=== PATIENT | male | born 1960 | race Hispanic/Latino ===

== ENCOUNTER 2016-07-07 04:35 | Inpatient (IN) | payer MEDICAID ==
--- NOTE | 2016-07-07 04:58 | ED PDOC ---
Arrival/HPI - General Chief Complaint: Altered Mental Status Time Seen by Provider: 07/07/16 04:36 Historian: Family, EMS - History of Present Illness Narrative History of Present Illness (Text): 07/07/16 04:56 Isael Haney is a 56 year old male, whose past medical history includes hernias, gout, kidney stones, and CAD stents, presents to the emergency department via ambulance for unresponsiveness. Patient was found unresponsive on the couch earlier today morning by daughter, who called the ambulance. He was last seen normal at 6 pm yesterday. Patient's daughter informs that he had been sick for past few days, but was unwilling to get evaluated. ROS limited due to patient's condition. Symptom Onset: Sudden Symptom Course: Unchanged Severity Level: Severe Activities at Onset: Light Context: Home Past Medical History - Provider Review Nursing Documentation Reviewed: Yes - Infectious Disease Hx of Infectious Diseases: None - Cardiac Hx Cardiac Disorders: No - Pulmonary Hx Respiratory Disorders: No - Neurological Hx Neurological Disorder: No - HEENT Hx HEENT Disorder: No - Renal Hx Kidney Stones: Yes - Endocrine/Metabolic Hx Endocrine Disorders: No - Hematological/Oncological Hx Blood Disorders: No - Integumentary Hx Dermatological Disorder: No - Musculoskeletal/Rheumatological Hx Falls: No Hx Gout: Yes - Gastrointestinal Hx Gastrointestinal Disorders: No - Genitourinary/Gynecological Hx Genitourinary Disorders: No - Psychiatric Hx Psychophysiologic Disorder: No Hx Substance Use: No - Surgical History Other/Comment: Renal stents - removed over a year ago - Suicidal Assessment Feels Threatened In Home Enviroment: No Family/Social History - Physician Review Nursing Documentation Reviewed: Yes Family/Social History: No Known Family HX Smoking Status: Unknown If Ever Smoked Hx Alcohol Use: No Hx Substance Use: No Allergies/Home Meds Allergies/Adverse Reactions: Allergies No Known Allergies Allergy (Verified 07/29/15 10:15) Home Medications: Home Meds Medication Instructions Recorded Confirmed Allopurinol [Zyloprim] 300 mg PO BID 07/07/16 07/07/16 Cetirizine HCl [Zyrtec Allergy] 10 mg PO DAILY 07/07/16 07/07/16 Cholecalciferol (Vitamin D3) 2,000 unit PO DAILY 07/07/16 07/07/16 [Vitamin D3] Dexamethasone/Tobramycin [Tobradex 1 drop OP QID 07/07/16 07/07/16 0.1%-0.3% 2.5 Ml] Indomethacin [Indocin] 50 mg PO BID 07/07/16 07/07/16 Ketotifen Fumarate [Zaditor 5 ml] 1 drop LEFTEYE BID 07/07/16 07/07/16 Tamsulosin [Flomax] 0.4 mg PO DAILY 07/07/16 07/07/16 Review of Systems - Review of Systems Systems not reviewed;Unavailable: Intubated Physical Exam Vital Signs Temp Pulse Resp BP Pulse Ox 07/07/16 09:00 155 H 18 91/52 L 100 07/07/16 08:00 155 H 16 100/65 100 07/07/16 07:30 147 H 40 H 119/72 100 07/07/16 06:19 150 H 15 144/63 100 07/07/16 05:40 149 H 15 114/67 100 07/07/16 05:00 104.4 F H 07/07/16 04:50 104.4 F H 140 H 15 120/79 100 Temperature: Febrile Blood Pressure: Normal Pulse: Tachycardic Respiratory Rate: Mechanically Ventilated Appearance: Positive for: Non-Toxic Mental Status: Positive for: other (Unresponsive ) - Systems Exam Head: Present: Atraumatic, Normocephalic Pupils: Present: PERRL Conjunctiva: Present: Normal Cardiovascular: Present: Normal S1, S2, Tachycardic. No: Murmurs Abdomen: Present: Normal Bowel Sounds. No: Tenderness, Distention, Peritoneal Signs Upper Extremity: Present: Normal Inspection. No: Cyanosis, Edema Lower Extremity: Present: Normal Inspection. No: Edema Skin: Present: Warm, Dry, Normal Color. No: Rashes Psychiatric: Present: Other (unresponsive ) Medical Decision Making ED Course and Treatment: 07/07/16 04:58 Impression: A 56 year old male who was brought to emergency department for unresponsiveness. Plan: -- CT Head -- EKG -- Labs, cardiac enzymes -- Drug screen -- Chest X-ray -- Blood culture -- Urine culture -- Urinalysis -- Reassess and disposition Progress Notes: 07/07/16 05:00 Patient was intubated in the field with a 7 gauge ET tube with 23 cm lip line. EKG reviewed by me: Sinus Tachycardia @ [address]/T wave changes. - Lab Interpretations Microbiology Results: Microbiology Results 07/07/16 08:00 Urine,Clean Catch Urine Culture - Final Escherichia Coli Methicillin Resistant S Aureus 07/07/16 05:00 Urine,Ewing Urine Culture - Final Escherichia Coli Methicillin Resistant S Aureus 07/07/16 05:40 Blood-Venous Blood Culture - Final Methicillin Resistant S Aureus 07/07/16 05:40 Blood-Venous Gram Stain - Final 07/07/16 04:45 Blood-Venous S.aureus & Coag-Neg Staph PNA FISH - Final 07/07/16 04:45 Blood-Venous Blood Culture - Final Methicillin Resistant S Aureus 07/07/16 04:45 Blood-Venous Gram Stain - Final Lab Results: 07/07/16 04:45 07/07/16 04:45 Lab Results 07/07/16 09:10: pO2 61 H, VBG pH 7.10 L*, VBG pCO2 34.0 L, VBG HCO3 10.6 L, VBG Total CO2 11.6 L, VBG O2 Sat (Calc) 88.6 H, VBG Base Excess -18.1 L, VBG Potassium 3.2 L, Sodium 132.0, Chloride 106.0, Glucose 103, Lactate 4.6 H*, FiO2 21.0, Venous Blood Potassium 3.2 L 07/07/16 09:00: Hepatitis A IgM Ab Negative, Hep Bs Antigen Negative, Hep B Core IgM Ab Negative, Hepatitis C Antibody Negative 07/07/16 09:00: TSH 3rd Generation 1.49 07/07/16 09:00: Hemoglobin A1c 6.1 07/07/16 09:00: HIV 1&2 Ag/Ab, 4th Gen Nonreactive 07/07/16 09:00: Procalcitonin 175.65 H 07/07/16 06:00: pCO2 19 L*, pO2 135.0 H, HCO3 6.8 L*, ABG pH 7.16 L*, ABG Total CO2 7.4 L, ABG O2 Saturation 96.7, ABG Base Excess -19.8 L, ABG Potassium 2.9 L , Sodium 134.0, Chloride 111.0 H, Glucose 132 H, Lactate 3.1 H, FiO2 50.0, Arterial Blood Potassium 2.9 L 07/07/16 05:00: Urine Opiates Screen Negative, Urine Methadone Screen Negative, Ur Barbiturates Screen Negative, Ur Phencyclidine Scrn Negative, Ur Amphetamines Screen Negative, U Benzodiazepines Scrn Negative, U Oth Cocaine Metabols Negative, U Cannabinoids Screen Negative 07/07/16 05:00: Urine Color Yellow, Urine Appearance Cloudy, Urine pH 6.0, Ur Specific Lynn 1.015, Urine Protein 100 H, Urine Glucose (UA) Negative, Urine Ketones Negative, Urine Blood Large H, Urine Nitrate Negative, Urine Bilirubin Small H, Urine Urobilinogen 1.0 H, Ur Leukocyte Esterase Moderate H, Urine RBC 2 - 5, Urine WBC Tntc, Ur Epithelial Cells 0 - 2, Urine Bacteria Many 07/07/16 04:45: pO2 33, VBG pH 6.92 L*, VBG pCO2 53.0, VBG HCO3 10.9 L, VBG Total CO2 12.5 L, VBG O2 Sat (Calc) 52.2, VBG Base Excess -22.0 L, VBG Potassium 3.9, Sodium 128.0 L, Chloride 98.0, Glucose 166 H, Lactate 5.5 H*, FiO2 21.0, Venous Blood Potassium 3.9 07/07/16 04:45: Ammonia 20 07/07/16 04:45: Salicylates < 1 L, Acetaminophen < 10.0 L 07/07/16 04:45: Alcohol, Quantitative < 10 07/07/16 04:45: Sodium 131 L, Chloride 98, Potassium 3.5 L, Carbon Dioxide 10 L , Anion Gap 27 H, BUN 103 H, Creatinine 9.8 H*, Est GFR ( Amer) 7, Est GFR (Non-Af Amer) 6, Random Glucose 156 H, Calcium 8.3 L, Phosphorus 6.9 H, Magnesium 1.6 L, Total Bilirubin 2.7 H, AST 64 H, ALT 46, Alkaline Phosphatase 169 H, Lactate Dehydrogenase 836 H, Total Creatine Kinase 651 H, CK-MB (CK-2) 10.4 H, CK-MB (CK-2) % 1.6 L, Troponin I 1.87 H*, Total Protein 6.2, Albumin 3.3 , Globulin 2.9, Albumin/Globulin Ratio 1.1 07/07/16 04:45: PT 13.4 H, INR 1.24 H, APTT 35.9 H 07/07/16 04:45: WBC 29.5 H* D, RBC 4.96, Hgb 14.7, Hct 41.5 L, MCV 83.7, MCH 29.6, MCHC 35.4, RDW 15.6 H, Plt Count 146, Neutrophils % (Manual) 79 H, Band Neutrophils % 13 H*, Lymphocytes % (Manual) 4 L, Monocytes % (Manual) 4, Platelet Evaluation Normal, Poikilocytosis (manual Slight, Anisocytosis (manual ) 1+ - RAD Interpretation Radiology Orders: 07/07/16 04:43 HEAD W/O CONTRAST [CT] Stat 07/07/16 04:44 CHEST PORTABLE [RAD] Stat 07/07/16 05:52 ABD & PELVIS W/O PO OR IV CONT [CT] Stat - Medication Orders Current Medication Orders: Discontinued Medications Acetaminophen (Tylenol 650 Mg Supp) Confirm Administered Dose 650 mg .ROUTE .STK -MED ONE Stop: 07/07/16 05:14 Last Admin: 07/07/16 05:00 Dose: 650 mg Re-Assess: MAR Pain/Vitals Document 07/07/16 06:00 RD (Rec: 07/07/16 06:04 RD [id number]) Pain Reassessment Is This A Pain ReAssessment? No Presence of Pain Presence of Pain Yes Acetaminophen (Tylenol 650 Mg Supp) 650 mg RC STAT STA Stop: 07/07/16 05:19 Last Admin: 07/07/16 05:29 Dose: Artificial Tears (Puralube Opht Oint) 2 appl OU Q2H COUNT INCLUDES THE [facility] Last Admin: 07/09/16 05:44 Dose: 1 applic Heparin Sodium (Porcine) (Heparin) 5,000 units SC Q8H NICO PRN Reason: Protocol Last Admin: 07/07/16 09:55 Dose: Hydrocortisone Sodium Succinate (Solu-Cortef) 50 mg IV Q6 NICO Hydrocortisone Sodium Succinate (Solu-Cortef) 50 mg IVP Q6H COUNT INCLUDES THE [facility] Last Admin: 07/09/16 04:54 Dose: 50 mg Aztreonam (Azactam 2 Gm) 100 mls @ 100 mls/hr IVPB STAT STA PRN Reason: Protocol Stop: 07/07/16 06:13 Last Admin: 07/07/16 05:29 Dose: 100 mls/hr Sodium Chloride 2,100 ml/ IV (SUPPLIES) 2,100 mls @ 4,200 mls/hr IV ONCE ONE PRN Reason: 60 ML/KG/HR Stop: 07/07/16 05:15 Last Admin: 07/07/16 05:00 Dose: 4,200 mls/hr Vancomycin HCl (Vancomycin 1gm) 1 gm in 250 mls @ 167 mls/hr IVPB STAT STA PRN Reason: Protocol Stop: 07/07/16 06:43 Last Admin: 07/07/16 06:46 Dose: 167 mls/hr Midazolam 100 mg/100ml in NS (Midazolam 100 Mg/100ml In Ns) 100 mg in 100 mls @ 3 mls/hr IV .Q24H PRN; Protocol; 3 MG/HR PRN Reason: Agitation Last Admin: 07/07/16 10:28 Dose: 7 mg/hr, 7 mls/hr Metronidazole (Flagyl) 500 mg in 100 mls @ 100 mls/hr IVPB Q8 NICO PRN Reason: Protocol Last Admin: 07/09/16 05:07 Dose: 100 mls/hr Piperacillin Sod/Tazobactam Sod (Zosyn 3.375 In Ns 100ml) 100 mls @ 200 mls/hr IVPB STAT STA PRN Reason: Protocol Stop: 07/07/16 09:16 Last Admin: 07/07/16 14:44 Dose: 200 mls/hr Sodium Bicarbonate 150 meq/ (Dextrose) 1,150 mls @ 200 mls/hr IV .Q5H45M NICO Last Admin: 07/09/16 01:30 Dose: 200 mls/hr Meropenem 1g/NS 100mL IVPB (Meropenem 1g/Ns 100ml Ivpb) 1 gm in 100 mls @ 100 mls/hr IVPB Q8 NICO PRN Reason: Protocol Stop: 07/14/16 10:01 Last Admin: 07/07/16 14:11 Dose: Daptomycin 420 mg/ Sodium (Chloride) 100 mls @ 200 mls/hr IV ONCE ONE Stop: 07/07/16 10:44 Last Admin: 07/07/16 13:36 Dose: 200 mls/hr Gentamicin Sulfate 350 mg/ (Sodium Chloride) 108.75 mls @ 108.75 mls/hr IVPB ONCE ONE Stop: 07/07/16 11:14 Last Admin: 07/07/16 14:03 Dose: 108.75 mls/hr Amiodarone HCl/Dextrose (Nexterone 150 Mg In Dextrose 100 Ml (Premix)) Confirm Administered Dose 150 mg in 100 mls @ ud .ROUTE .STK-MED ONE Stop: 07/07/16 11:10 Last Admin: 07/07/16 14:45 Dose: NOREPINEPHRINE BIT/0.9 % NACL (Levophed 4 Mg/ 250 Ml Ns Premixed) Confirm Administered Dose 4 mg in 250 mls @ ud IV .STK-MED ONE Stop: 07/07/16 11:13 Last Admin: 07/07/16 14:11 Dose: Amiodarone HCl/Dextrose (Nexterone 360 Mg In D5w 200 Ml (Premix)) 360 mg in 200 mls @ 33.333 mls/hr IV .Q6H NICO; 1 MG/MIN PRN Reason: Protocol Last Admin: 07/07/16 11:43 Dose: 33.333 mls/hr Phenylephrine HCl 40 mg/ (Sodium Chloride) 254 mls @ 38.1 mls/hr IV .Q6H40M PRN ; Protocol; 100 MCG/MIN PRN Reason: TITRATE PER MD ORDER Last Admin: 07/08/16 16:06 Dose: 200 mcg/min, 76.2 mls/hr Sodium Chloride (Sodium Chloride 0.9%) 500 mls @ 999 mls/hr IV .Q31M STA Stop: 07/07/16 12:59 Sodium Chloride (Sodium Chloride 0.9%) 500 mls @ 999 mls/hr IV .Q31M STA Stop: 07/07/16 13:00 Amiodarone HCl/Dextrose (Nexterone 150 Mg In Dextrose 100 Ml (Premix)) 150 mg in 100 mls @ 600 mls/hr IVPB ONCE ONE PRN Reason: Protocol Stop: 07/07/16 12:39 Last Admin: 07/07/16 11:30 Dose: 600 mls/hr Sodium Chloride (Sodium Chloride 0.9%) 1,000 mls @ 999 mls/hr IV .Q1H1M STA Stop: 07/07/16 13:29 Last Admin: 07/07/16 13:47 Dose: 999 mls/hr Sodium Chloride (Sodium Chloride 0.9%) 1,000 mls @ 999 mls/hr IV .Q1H1M STA Stop: 07/07/16 13:30 Last Admin: 07/07/16 13:47 Dose: 999 mls/hr Vasopressin 20 units/ Sodium (Chloride) 101 mls @ 9.09 mls/hr IV .Q11H7M NICO; 0.03 U/MIN PRN Reason: Protocol Last Admin: 07/08/16 13:10 Dose: 9.09 mls/hr NOREPINEPHRINE BIT/0.9 % NACL (Levophed 4 Mg/ 250 Ml Ns Premixed) 4 mg in 250 mls @ 15 mls/hr IV .[id number] PRN; Protocol; 4 MCG/MIN PRN Reason: TITRATE PER MD ORDER NOREPINEPHRINE BIT/0.9 % NACL (Levophed 4 Mg/ 250 Ml Ns Premixed) 4 mg in 250 mls @ 18.75 mls/hr IV .[id number] PRN; Protocol; 5 MCG/MIN PRN Reason: TITRATE PER MD ORDER Stop: 07/08/16 22:13 Last Admin: 07/08/16 18:53 Dose: 20 mcg/min, 75 mls/hr Sodium Chloride (Sodium Chloride 0.9%) 1,000 mls @ 999 mls/hr IV .Q1H1M STA Stop: 07/07/16 15:16 Last Admin: 07/07/16 14:21 Dose: 999 mls/hr Midazolam 100 mg/100ml in NS (Midazolam 100 Mg/100ml In Ns) 100 mg in 100 mls @ 1 mls/hr IV .Q24H PRN; Protocol; 1 MG/HR PRN Reason: Sedation Last Admin: 07/08/16 08:40 Dose: 0.5 mg/hr, 0.5 mls/hr Acetaminophen (Ofirmev) 1,000 mg in 100 mls @ 400 mls/hr IVPB ONCE ONE Stop: 07/07/16 15:17 Last Admin: 07/07/16 15:13 Dose: 400 mls/hr Re-Assess: [facility] Pain Assessment Document 07/07/16 16:13 [id number] (Rec: 07/07/16 17:16 [id number] [email or web address]-[id number] ) Pain Reassessment Is this a pain reassessment? No Presence of Pain Presence of Pain No Magnesium Sulfate 2 gm/ Sodium (Chloride) 104 mls @ 102 mls/hr IVPB ONCE ONE Stop: 07/07/16 16:13 Last Admin: 07/07/16 15:41 Dose: 102 mls/hr Potassium Chloride (Potassium Chloride 20 Meq/100 Ml) 20 meq in 100 mls @ 50 mls/hr IVPB Q2H COUNT INCLUDES THE [facility] Stop: 07/07/16 19:14 Last Admin: 07/07/16 17:10 Dose: 50 mls/hr Sodium Chloride (Sodium Chloride 0.9%) 1,000 mls @ 999 mls/hr IV .Q1H1M STA Stop: 07/07/16 16:56 Last Admin: 07/07/16 16:00 Dose: 999 mls/hr Meropenem 1g/NS 100mL IVPB (Meropenem 1g/Ns 100ml Ivpb) 1 gm in 100 mls @ 100 mls/hr IVPB Q12 NICO PRN Reason: Protocol Stop: 07/14/16 22:01 Last Admin: 07/08/16 21:43 Dose: 100 mls/hr Daptomycin 450 mg/ Sodium (Chloride) 100 mls @ 200 mls/hr IV QOTHERDAY COUNT INCLUDES THE [facility] Stop: 07/22/16 10:01 Sodium Chloride (Sodium Chloride 0.9%) 1,000 mls @ 999 mls/hr IV .Q1H1M STA Stop: 07/08/16 10:20 Last Admin: 07/08/16 09:39 Dose: 999 mls/hr Daptomycin 450 mg/ Sodium (Chloride) 100 mls @ 200 mls/hr IV QOTHERDAY COUNT INCLUDES THE [facility] Stop: 07/14/16 10:01 Daptomycin 450 mg/ Sodium (Chloride) 100 mls @ 200 mls/hr IV QOTHERDAY COUNT INCLUDES THE [facility] Stop: 07/13/16 10:16 Last Admin: 07/08/16 11:30 Dose: 200 mls/hr Norepinephrine Bitartrate 8 mg (/ Sodium Chloride) 258 mls @ 9.67 mls/hr IV .Q24H PRN; 5 MCG/MIN PRN Reason: PER MDS ORDER Norepinephrine Bitartrate 8 mg (/ Sodium Chloride) 258 mls @ 9.67 mls/hr IV .Q24H PRN; Protocol; 5 MCG/MIN PRN Reason: PER MDS ORDER Last Titration: 07/09/16 01:05 Dose: 0 mcg/min, 0 mls/hr Phenylephrine HCl 80 mg/ (Sodium Chloride) 258 mls @ 19.35 mls/hr IV .[id number] PRN; Protocol; 100 MCG/MIN PRN Reason: TITRATE PER MD ORDER Last Titration: 07/09/16 01:05 Dose: 0 mcg/min, 0 mls/hr Morphine Sulfate 100 mg/ (Sodium Chloride) 100 mls @ 4 mls/hr IV .Q24H COUNT INCLUDES THE [facility] Last Admin: 07/09/16 01:50 Dose: 4 mls/hr Re-Assess: [facility] Pain Assessment Document 07/09/16 02:50 [facility] (Rec: 07/09/16 04:46 [id number] Pain Reassessment Is this a pain reassessment? Yes Sleep Is patient sleeping during reassessment? Yes Metoprolol Tartrate (Lopressor) 2.5 mg IVP ONCE ONE Stop: 07/07/16 15:51 Last Admin: 07/07/16 15:58 Dose: Not Given Non-Admin Reason: BP Parameters Not Met Midazolam HCl (Versed Inj) 4 mg IVP STAT STA Stop: 07/07/16 07:58 Last Admin: 07/07/16 08:19 Dose: 4 mg Morphine Sulfate (Morphine) 6 mg IVP STAT STA Stop: 07/09/16 00:41 Last Admin: 07/09/16 01:05 Dose: 6 mg Re-Assess: [facility] Pain Assessment Document 07/09/16 02:05 [facility] (Rec: 07/09/16 04:46 A [id number]) Pain Reassessment Is this a pain reassessment? Yes Sleep Is patient sleeping during reassessment? Yes Morphine Sulfate (Morphine) 6 mg IVP STAT STA Stop: 07/09/16 00:54 Last Admin: 07/09/16 01:22 Dose: Pantoprazole Sodium (Protonix Inj) 40 mg IVP DAILY COUNT INCLUDES THE [facility] Last Admin: 07/08/16 09:37 Dose: 40 mg Phenylephrine HCl (Phenylephrine Inj) Confirm Administered Dose 40 mg .ROUTE .STK-MED ONE Stop: 07/07/16 11:35 Last Admin: 07/07/16 14:13 Dose: Pneumococcal Polyvalent Vaccine (Pneumovax 23 Vaccine) 0.5 ml IM .ONCE ONE Stop: 07/07/16 13:22 Potassium Chloride (Potassium Chloride Oral Soln) 40 meq PO ONCE ONE Stop: 07/07/16 15:00 Last Admin: 07/07/16 15:33 Dose: 40 meq Sodium Bicarbonate (Sodium Bicarbonate (8.4%) 50 Meq Syringe) 50 meq IVP ONCE ONE Stop: 07/07/16 05:58 Last Admin: 07/07/16 06:19 Dose: 50 meq Vancomycin HCl (Vancocin 25 Mg/Ml (Oral Use)) 500 mg PO Q6H NICO PRN Reason: Protocol Last Admin: 07/09/16 04:59 Dose: 500 mg - Transfer of Care Patient signed out to Dr:: beata viveros reval and dispo Disposition/Present on Arrival - Present on Arrival Any Indicators Present on Arrival: No History of DVT/PE: No History of Uncontrolled Diabetes: No Urinary Catheter: No History Surgical Site Infection Following: None - Disposition Have Diagnosis and Disposition been Completed?: Yes Diagnosis: Septic shock, Respiratory failure, Acute renal failure (ARF) Disposition: HOSPITALIZED Disposition Time: 07:00 Condition: CRITICAL
[2016-07-07] MEDS ORDERED: Vancomycin 1gm in NS 250ml 1 GM/250 ML BAG IVPB STA (05:14)
[2016-07-07] MEDS ORDERED: Aztreonam 2 Gm in NS 100mL 100 ML IVPB STA (05:14)
[2016-07-07 05:17] LABS: INR 1.24 (0.93-1.08); PARTIAL THROMBOPLASTIN TIME 35.9 Seconds (23.7-30.8)
[2016-07-07 05:23] LABS: URINE BILIRUBIN SMALL (NEGATIVE); URINE BLOOD LARGE (NEGATIVE); URINE GLUCOSE (UA) NEGATIVE (NEGATIVE); URINE KETONE NEGATIVE (NEGATIVE); URINE LEUKOCYTE ESTERASE MODERATE Leu/uL (NEGATIVE); URINE PROTEIN 100 mg/dL (<30 mg/dL)
[2016-07-07 05:24] LABS: URINE APPEARANCE CLOUDY (CLEAR); URINE COLOR YELLOW (YELLOW)
[2016-07-07 05:29] LABS: HEMATOCRIT 41.5 % (42.0-52.0); MEAN CELL VOLUME 83.7 fL (80.0-105.0); MEAN CORPUSCULAR HEMOGLOBIN 29.6 pg (25.0-35.0); MEAN CORPUSCULAR HGB CONC 35.4 g/dl (31.0-37.0); PLATELET COUNT 146 10^3/uL (120.0-450.0); RED CELL DISTRIBUTION WIDTH 15.6 % (11.5-14.5)
[2016-07-07 05:39] LABS: ADD MANUAL DIFF? YES; WHITE BLOOD COUNT 29.5 10^3/ul (4.5-11.0)
[2016-07-07 05:42] LABS: ALB/GLOB RATIO 1.1 (1.1-1.8); BILIRUBIN,TOTAL 2.7 mg/dL (0.2-1.3); CALCIUM 8.3 mg/dL (8.4-10.5); MAGNESIUM 1.6 mg/dL (1.7-2.2); PHOSPHOROUS 6.9 mg/dL (2.5-4.5); POTASSIUM 3.5 mmol/L (3.6-5.0); TOTAL PROTEIN 6.2 g/dL (5.8-8.3)
[2016-07-07 05:54] LABS: VENOUS BLOOD PH 6.92 (7.32-7.43)
[2016-07-07 05:56] LABS: URINE BACTERIA MANY (NEG); URINE EPITHELIAL CELLS 0 - 2 /hpf (0-5); URINE WBC TNTC /hpf (0-6)
[2016-07-07 05:56] LABS: TROPONIN I 1.87 ng/mL
[2016-07-07] MEDS ORDERED: Sodium Bicarbonate (8.4%) 50 Meq Syringe IVP ONE (05:57)
[2016-07-07 06:21] LABS: ARTERIAL BLOOD GAS HCO3 6.8 mmol/L (21-28); ARTERIAL BLOOD GAS PH 7.16 (7.35-7.45)
[2016-07-07 06:36] LABS: NEUTROPHIL 79 % (50.0-70.0)
[2016-07-07 06:37] LABS: BAND 13 % (0-2); PLATELET ESTIMATE NORMAL (NORMAL)
[2016-07-07 06:38] LABS: ANISOCYTOSIS 1+; POIKILOCYTOSIS SLIGHT
--- NOTE | 2016-07-07 07:43 | RAD ---
HISTORY: intubation COMPARISON: Chest x-ray performed 07/07/16 TECHNIQUE: Chest, one view. FINDINGS: Endotracheal tube terminates approximately 2.7 cm above the musa. Patient's necklace obscures evaluation of the underlying parenchyma, upper lobes. LUNGS: No focal consolidation. Please note that chest x-ray has limited sensitivity for the detection of pulmonary masses. PLEURA: No significant pleural effusion identified. No definite pneumothorax . CARDIOVASCULAR: Heart size appears within limits. OSSEOUS STRUCTURES: Mild degenerative changes. VISUALIZED UPPER ABDOMEN: Partially imaged bilateral nephrostomy tubes. OTHER FINDINGS: None. IMPRESSION: Endotracheal tube. Partially imaged bilateral nephrostomy tubes. Mild bibasilar atelectasis.
[2016-07-07] MEDS ORDERED: Midazolam 2 MG/2 ML VIAL IVP STA (07:57)
--- NOTE | 2016-07-07 08:12 | CT ---
PROCEDURE: CT HEAD WITHOUT CONTRAST. HISTORY: ams COMPARISON: None available. TECHNIQUE: Axial computed tomography images were obtained through the head/brain without intravenous contrast. Radiation dose: Total exam DLP = 745.44 mGy-cm. This CT exam was performed using one or more of the following dose reduction techniques: Automated exposure control, adjustment of the mA and/or kV according to patient size, and/or use of iterative reconstruction technique. FINDINGS: BRAIN: No mass effect, midline shift, or edema. Thin hyperdensity, right greater than left parietal sulci consistent with small subarachnoid hemorrhage. Please note that MRI with diffusion imaging is more sensitive in the detection of acute ischemic event. VENTRICLES: No hydrocephalus. CALVARIUM: Unremarkable. PARANASAL SINUSES: Unremarkable as visualized. No significant inflammatory changes. MASTOID AIR CELLS: Unremarkable as visualized. No inflammatory changes. OTHER FINDINGS: Small soft tissue hematoma, left posterior scalp. IMPRESSION: Findings consistent with bilateral small subarachnoid hemorrhage as above. Recommend close interval follow-up to assess for stability or resolution. Small soft tissue hematoma, left posterior scalp. Emergent findings discussed with Dr. Johnson on 07/07/16 at 7:33 a.m.
--- NOTE | 2016-07-07 08:18 | ED PDOC ---
Physical Exam Vital Signs Temp Pulse Resp BP Pulse Ox 07/07/16 06:19 150 H 15 144/63 100 07/07/16 05:40 149 H 15 114/67 100 07/07/16 05:00 104.4 F H 07/07/16 04:50 104.4 F H 140 H 15 120/79 100 Medical Decision Making ED Course and Treatment: 07/07/16 07:00 Patient signed out to me by Dr. Nicholas pending CT's, reevaluation, disposition. PROCEDURE: CT HEAD WITHOUT CONTRAST Financial Planning Analyst : Polly Loving MD Report Date : 07/07/2016 07:39:31 IMPRESSION: Findings consistent with bilateral small subarachnoid hemorrhage as above. Recommend close interval follow-up to assess for stability or resolution. Small soft tissue hematoma, left posterior scalp. Emergent findings discussed with Dr. Johnson on 07/07/16 at 7:33 a.m. PROCEDURE: CT Abdomen and Pelvis without Oral or IV contrast Financial Planning Analyst : Polly Loving MD Report Date : 07/07/2016 08:17:37 IMPRESSION: Zfld-[id number]-vftj-right bibasilar atelectasis or infiltrates. Left colon through to the rectosigmoid colon with associated inflammatory changes compatible with colitis (i.e. infectious, inflammatory, ischemic). Large amount of retained colonic fecal material within the right and proximal transverse colon. Hepatic steatosis. Pancreatic atrophy. Bilateral nephrostomy tubes. Fullness of bilateral renal collecting system. 2.1 cm right renal exophytic lesion measures higher HU than expected for simple cyst, further evaluation with ultrasound may be considered. Bilateral adrenal gland hypertrophy. Bilateral fat containing inguinal hernias. Additional findings as above. Chest X-ray Dictator : Polly Loving MD Report Date : 07/07/2016 07:40:47 IMPRESSION: Endotracheal tube. Partially imaged bilateral nephrostomy tubes. Mild bibasilar atelectasis. 07/07/16 07:35 As per radiologist, preliminary read shows possible bilateral subarachnoid hemorrhage 07/07/16 08:[address] Mares, neurosurgery, who states he reviewed the case and there is nothing to do, suggests observation. 07/07/16 08:[address] Randolph - Lab Interpretations Lab Results: 07/07/16 04:45 07/07/16 04:45 Lab Results 07/07/16 06:00: pCO2 19 L*, pO2 135.0 H, HCO3 6.8 L*, ABG pH 7.16 L*, ABG Total CO2 7.4 L, ABG O2 Saturation 96.7, ABG Base Excess -19.8 L, ABG Potassium 2.9 L , Sodium 134.0, Chloride 111.0 H, Glucose 132 H, Lactate 3.1 H, FiO2 50.0, Arterial Blood Potassium 2.9 L 07/07/16 05:00: Urine Opiates Screen Negative, Urine Methadone Screen Negative, Ur Barbiturates Screen Negative, Ur Phencyclidine Scrn Negative, Ur Amphetamines Screen Negative, U Benzodiazepines Scrn Negative, U Oth Cocaine Metabols Negative, U Cannabinoids Screen Negative 07/07/16 05:00: Urine Color Yellow, Urine Appearance Cloudy, Urine pH 6.0, Ur Specific [place] 1.015, Urine Protein 100 H, Urine Glucose (UA) Negative, Urine Ketones Negative, Urine Blood Large H, Urine Nitrate Negative, Urine Bilirubin Small H, Urine Urobilinogen 1.0 H, Ur Leukocyte Esterase Moderate H, Urine RBC 2 - 5, Urine WBC Tntc, Ur Epithelial Cells 0 - 2, Urine Bacteria Many 07/07/16 04:45: pO2 33, VBG pH 6.92 L*, VBG pCO2 53.0, VBG HCO3 10.9 L, VBG Total CO2 12.5 L, VBG O2 Sat (Calc) 52.2, VBG Base Excess -22.0 L, VBG Potassium 3.9, Sodium 128.0 L, Chloride 98.0, Glucose 166 H, Lactate 5.5 H*, FiO2 21.0, Venous Blood Potassium 3.9 07/07/16 04:45: Ammonia 20 07/07/16 04:45: Salicylates < 1 L, Acetaminophen < 10.0 L 07/07/16 04:45: Alcohol, Quantitative < 10 07/07/16 04:45: Sodium 131 L, Chloride 98, Potassium 3.5 L, Carbon Dioxide 10 L , Anion Gap 27 H, BUN 103 H, Creatinine 9.8 H*, Est GFR ( Amer) 7, Est GFR (Non-Af Amer) 6, Random Glucose 156 H, Calcium 8.3 L, Phosphorus 6.9 H, Magnesium 1.6 L, Total Bilirubin 2.7 H, AST 64 H, ALT 46, Alkaline Phosphatase 169 H, Lactate Dehydrogenase 836 H, Total Creatine Kinase 651 H, CK-MB (CK-2) 10.4 H, CK-MB (CK-2) % 1.6 L, Troponin I 1.87 H*, Total Protein 6.2, Albumin 3.3 , Globulin 2.9, Albumin/Globulin Ratio 1.1 07/07/16 04:45: PT 13.4 H, INR 1.24 H, APTT 35.9 H 07/07/16 04:45: WBC 29.5 H* D, RBC 4.96, Hgb 14.7, Hct 41.5 L, MCV 83.7, MCH 29.6, MCHC 35.4, RDW 15.6 H, Plt Count 146, Neutrophils % (Manual) 79 H, Band Neutrophils % 13 H*, Lymphocytes % (Manual) 4 L, Monocytes % (Manual) 4, Platelet Evaluation Normal, Poikilocytosis (manual Slight, Anisocytosis (manual ) 1+ - RAD Interpretation Radiology Orders: 07/07/16 04:43 HEAD W/O CONTRAST [CT] Stat 07/07/16 04:44 CHEST PORTABLE [RAD] Stat 07/07/16 05:52 ABD & PELVIS W/O PO OR IV CONT [CT] Stat Interior Design Program Chair: Radiologist - Medication Orders Current Medication Orders: Heparin Sodium (Porcine) (Heparin) 5,000 units SC Q8H NICO PRN Reason: Protocol Midazolam 100 mg/100ml in NS (Midazolam 100 Mg/100ml In Ns) 100 mg in 100 mls @ 3 mls/hr IV .Q24H PRN; Protocol; 3 MG/HR PRN Reason: Agitation Last Admin: 07/07/16 08:52 Dose: 3 mls/hr Metronidazole (Flagyl) 500 mg in 100 mls @ 100 mls/hr IVPB Q8 NICO PRN Reason: Protocol Piperacillin Sod/Tazobactam Sod (Zosyn 3.375 In Ns 100ml) 100 mls @ 200 mls/hr IVPB STAT STA PRN Reason: Protocol Stop: 07/07/16 09:16 Discontinued Medications Acetaminophen (Tylenol 650 Mg Supp) Confirm Administered Dose 650 mg .ROUTE .STK -MED ONE Stop: 07/07/16 05:14 Last Admin: 07/07/16 05:00 Dose: 650 mg Re-Assess: MAR Pain/Vitals Document 07/07/16 06:00 RD (Rec: 07/07/16 06:04 RD [id number]) Pain Reassessment Is This A Pain ReAssessment? No Presence of Pain Presence of Pain Yes Acetaminophen (Tylenol 650 Mg Supp) 650 mg RC STAT STA Stop: 07/07/16 05:19 Last Admin: 07/07/16 05:29 Dose: Aztreonam (Azactam 2 Gm) 100 mls @ 100 mls/hr IVPB STAT STA PRN Reason: Protocol Stop: 07/07/16 06:13 Last Admin: 07/07/16 05:29 Dose: 100 mls/hr Sodium Chloride 2,100 ml/ IV (SUPPLIES) 2,100 mls @ 4,200 mls/hr IV ONCE ONE PRN Reason: 60 ML/KG/HR Stop: 07/07/16 05:15 Last Admin: 07/07/16 05:00 Dose: 4,200 mls/hr Vancomycin HCl (Vancomycin 1gm) 1 gm in 250 mls @ 167 mls/hr IVPB STAT STA PRN Reason: Protocol Stop: 07/07/16 06:43 Last Admin: 07/07/16 06:46 Dose: 167 mls/hr Midazolam HCl (Versed Inj) 4 mg IVP STAT STA Stop: 07/07/16 07:58 Last Admin: 07/07/16 08:19 Dose: 4 mg Sodium Bicarbonate (Sodium Bicarbonate (8.4%) 50 Meq Syringe) 50 meq IVP ONCE ONE Stop: 07/07/16 05:58 Last Admin: 07/07/16 06:19 Dose: 50 meq - Scribe Statement The provider has reviewed the documentation as recorded by the Portillo Adair Provider Scribe Attestation: All medical record entries made by the Portillo were at my direction and personally dictated by me. I have reviewed the chart and agree that the record accurately reflects my personal performance of the history, physical exam, medical decision making, and the department course for this patient. I have also personally directed, reviewed, and agree with the discharge instructions and disposition. Disposition/Present on Arrival - Present on Arrival Any Indicators Present on Arrival: No History of DVT/PE: No History of Uncontrolled Diabetes: No Urinary Catheter: No History of Decub. Ulcer: No History Surgical Site Infection Following: None - Disposition Have Diagnosis and Disposition been Completed?: Yes Diagnosis: Septic shock, Respiratory failure, Acute renal failure (ARF) Disposition: HOSPITALIZED Disposition Time: 09:00 Condition: CRITICAL
--- NOTE | 2016-07-07 08:19 | CT ---
PROCEDURE: CT Abdomen and Pelvis without Oral or IV contrast. HISTORY: lower abd pain COMPARISON: None available. TECHNIQUE: Contiguous axial images of the abdomen and pelvis. No oral or IV contrast administered. Coronal and Sagittal reformats generated. Radiation dose: Total exam DLP = 609.94 mGy-cm. This CT exam was performed using one or more of the following dose reduction techniques: Automated exposure control, adjustment of the mA and/or kV according to patient size, and/or use of iterative reconstruction technique. FINDINGS: There is limited evaluation of the solid organs without the administration of IV contrast. Streak artifact from external object at the level of the sternum obscures evaluation. LOWER THORAX: Mpfb-[id number]-lsns-right basilar atelectasis or infiltrates. No visible pleural effusion or pneumothorax. LIVER: Hypoattenuation of the liver compatible with hepatic steatosis. GALLBLADDER AND BILE DUCTS: Unremarkable. PANCREAS: Fatty atrophy of the pancreas. SPLEEN: Unremarkable. ADRENALS: Bilateral adrenal gland hypertrophy. KIDNEYS AND URETERS: Bilateral nephrostomy tubes. Fullness of bilateral renal collecting systems. 2.1 cm right renal exophytic lesion measuring approximately 18 Hounsfield units higher than expected for a simple cyst; further evaluation with ultrasound may be considered. BLADDER: Decompressed urinary bladder limits evaluation. REPRODUCTIVE: Unremarkable. APPENDIX: Not identified. BOWEL: The stomach is nondistended. Lack of oral contrast limits evaluation for bowel pathology. The bowel loops appear within normal limits of caliber without evidence of intestinal obstruction. Left colon through to the rectosigmoid colon with associated inflammatory changes compatible with colitis (i.e. infectious, inflammatory, ischemic). Large amount of retained colonic fecal material within the right and proximal transverse colon. PERITONEUM: No significant free fluid. No definite free air. LYMPH NODES: No bulky lymphadenopathy identified. VASCULATURE: Atherosclerotic calcifications. No aortic aneurysm. BONES: Degenerative changes. OTHER FINDINGS: Bilateral fat containing inguinal hernias. IMPRESSION: Asqd-nujdrcc-qnty-right bibasilar atelectasis or infiltrates. Left colon through to the rectosigmoid colon with associated inflammatory changes compatible with colitis (i.e. infectious, inflammatory, ischemic). Large amount of retained colonic fecal material within the right and proximal transverse colon. Hepatic steatosis. Pancreatic atrophy. Bilateral nephrostomy tubes. Fullness of bilateral renal collecting system. 2.1 cm right renal exophytic lesion measures higher HU than expected for simple cyst, further evaluation with ultrasound may be considered. Bilateral adrenal gland hypertrophy. Bilateral fat containing inguinal hernias. Additional findings as above.
[2016-07-07] MEDS ORDERED: Piperacillin/Tazobact 3.375 gm 100 ML IVPB STA (08:47)
[2016-07-07] MEDS: Midazolam 100 mg/100ml in NS 100 MG/100 ML SOL IV PRN ×3 (08:52→14:43)
[2016-07-07] MEDS: metroNIDAZOLE IV 500 mg/100 ml 500 MG/100 ML BAG IVPB SCH ×3 (09:15→21:30)
[2016-07-07 09:27] LABS: VENOUS BLOOD GAS BASE EXCESS -18.1 mmol/L (0.0-2.0)
[2016-07-07] MEDS ORDERED: DAPTOmycin 500 mg Inj (Cubicin) IV ONE (09:50)
[2016-07-07] MEDS ORDERED: Gentamicin 80 mg/2mL Inj. IVPB ONE (09:53)
--- NOTE | 2016-07-07 10:00 | CARD ---
APPROVED REPORT EKG Measurement Heart [id number] <Conclusion> Sinus tachycardia with fusion complexes Otherwise normal ECG
[2016-07-07] MEDS: Sodium Bicarbonate 8.4% 150 MEQ in Dextrose 5% In Water 1,000 ML IV SCH ×3 (10:19→22:41)
--- NOTE | 2016-07-07 10:51 | PN ---
DATE: 07/07/2016 SUBJECTIVE: This is a 56-year-old gentleman with history of gout, kidney stones and coronary artery disease status post stent placement in the past, who presented to Emergency Department, brought in by ambulance. He was found to be unresponsive and was intubated en route. The patient was in his usual state of health up until 6:00 p.m. yesterday. It appears that he had been sick for several days prior to last night. He had abdominal pain, diarrhea; however, refused to be seen by a doctor. No details of his HPI available as patient is unresponsive and family members at bedside are poor historians. PAST MEDICAL HISTORY: Hernias, gout, kidney stones, coronary artery disease. FAMILY HISTORY: Noncontributory. MEDICATIONS: Unobtainable. ALLERGIES: NKDA. SOCIAL HISTORY: No alcohol or illicit drug abuse. No tobacco smoking. REVIEW OF SYSTEMS: Review of 12 organ system other than mentioned in history of present illness is negative. PHYSICAL EXAMINATION: VITAL SIGNS: Blood pressure 95/59, heart rate 155, oxygen saturation 100% on PRVC 50/5/15/450. The patient was started on Versed drip and it was titrated up for discomfort. HEAD AND NECK: Atraumatic. LUNGS: Clear to auscultation bilaterally. HEART: Regular rate and rhythm. S1, S2 normal. ABDOMEN: Soft, mildly distended. It does not appear to be tender and no peritoneal signs. SKIN: Moist. PSYCHIATRIC: The patient is sedated. MUSCULOSKELETAL: No cyanosis, clubbing or edema. No rash. LABORATORY DATA: ABG 7.16/19/135. WBC 29.5, hemoglobin 14.7, platelet count 146. Sodium 131, potassium 3.5, chloride 98, carbon dioxide 10, BUN 103, creatinine 9.8. Glucose 156, AST 64, ALT 46, troponin 1.87, urine positive for leukocyte esterase, but negative for nitrates, WBC too numerous to be counted and many urine bacteria. Toxicology report showed negative results for salicylates, acetaminophen, alcohol, barbiturate, PCP, amphetamines, benzodiazepines, cocaine and cannabinoids. INR 1.24. Chest x-ray: No acute pulmonary disease. Abdominal and pelvic CAT scan revealed left greater than right bibasilar atelectasis or infiltrates through the rectosigmoid colon with associated inflammatory changes compatible with colitis, infectious inflammatory ischemic, large amount of retained colonic fecal material with a right and proximal transverse colon. Bilateral nephrostomy tubes, bilateral adrenal gland hypertrophy. EKG showed sinus tachycardia. ASSESSMENT AND PLAN: This is a 56-year-old gentleman who was admitted with severe sepsis secondary to either colitis versus urinary tract infection ( combination of these two factors is possible as well) with multiorgan system failure including respiratory failure, CHRISTINA (on top of CKD) and septic encephalopathy, requiring intubation and ventilatory support. At present time, we will proceed with fluid resuscitation, antibiotics, septic workup including blood culture, urine culture and procalcitonin. ID consult and surgical consult will be appreciated. The patient also has acute kidney injury and nephrology consult was also requested. NEUROLOGIC: The patient is sedated with Versed. He still appears to be somewhat dyssynchronous with the ventilator and we will titrate his sedation up. The patient had small subarachnoid bleed. That was discussed with Dr Mares, who said no immediate intervention needed as it is small, likely traumatic as patient fell yesterday and hit his head, recommedned hold on s/c heparin for 48 hrs PULMONARY: We will proceed with protective lung ventilation strategy to avoid ventilate-induced lung injury. We will proceed with head of bed elevated more than 35 degrees. We will continue with deep venous thrombosis and gastrointestinal prophylaxis. Once shock resolved, conservative fluid management will be considered. However, at present time, aggressive fluid resuscitation is in order. Once shock resolved, we will also proceed with daily weaning trials and sedation medications. CARDIOVASCULAR: The patient is borderline normotensive; however, substantially tachycardic. It is likely related to severe sepsis and part of SIRS. Discomfort associated with endotracheal intubation likely is a contributing factor as well. We will continue with fluid resuscitation, treating sepsis, sedation. The patient has a small bump in troponin, which might be related to acute kidney injury; however, primary cardiac event cannot be ruled out. EKG did not show specific ischemic changes. We will get cardiology consult and echocardiogram. GASTROINTESTINAL: The patient is n.p.o. He has colitis. Stool will be sent for C. diff. GI and surgical consult will be requested. The patient was started on Flagyl and broad spectrum antibiotics. Possibility of ischemic colitis cannot be ruled out, even though patient does not have history of atrial fibrillation. Echocardiogram is pending to rule out intracardiac thrombus. ENDOCRINE: We will maintain blood glucose within 140-180 range according to NICE-SUGAR trial. INFECTIOUS DISEASE: The patient has severe sepsis secondary to urinary tract infection and colitis. The patient on broad-spectrum antibiotics and septic workup is in progress. ID consult will be appreciated. RENAL: The patient has acute kidney injury. He is oliguric. Initial fluid resuscitation started. If initial fluid resuscitation will not lead to improvement in renal function, renal replacement therapy will be considered. Nephrology consult is pending. The patient so far received 2 liters of normal saline. Bedside POC IVC ultrasound revealed IVC<1.5 cm with almost complete collapse on inspiration despite PPV-->additional 1L NS given, will repeat POC IVC US. Severe metabolic acidosis-->bicarb drip at 200 cc/hr started, Ve also increased to help with acidosis. Will continue to target euvolemia, euglycemia, normothermia and oxygen saturation more than 90%. Will continue with deep venous thrombosis and gastrointestinal prophylaxis. Addendum: Despite additional 1lNS HR increased to above 150-->no P wave identified on monitor and while EKG was pending, BP dropped to below 60s systolic-->decision was made for emergent cardioversion attempt, amiodarone started as well. Tachycardia persisted, but once HR slowed to 140s P-waves were seen on monitor, which was confirmed by EKG. Cardiology notified-->amiodarone stopped, fluid resuscitation continued, phenylephrine started, levo added. vasopressin 0.03 U/min and stress dose steroids initiated. CVC was placed in [facility]. Severe metabolic acidosis persisted-->spoke with Dr. Han-->will proceed with dialysis. HD catheter placed. Patient was seen by Dr. Hull and team--> no surgical intervention at present time. ccm time 40 min Devang Talbot MD cc: [id number] TT: 07/07/2016 10:50:36 Confirmation # [id number] Dictation # [id number] rina ARIAS
[2016-07-07] MEDS ORDERED: Amiodarone 150 mg/D5W 100 ml 150 MG/100 ML BAG ONE (11:09)
[2016-07-07] MEDS ORDERED: NOREPINEPHRINE BIT/0.9 % NACL 4 MG/250 ML BAG IV ONE (11:12)
[2016-07-07] MEDS ORDERED: Amiodarone 360 mg/D5W 200 ml 360 MG/200 ML BAG IV SCH ×2 (11:30→17:30)
[2016-07-07] MEDS ORDERED: Phenylephrine 10 mg/ml Inj ONE (11:34)
[2016-07-07] MEDS ORDERED: Sodium Chloride 0.9% 500 ML IV STA ×2 (12:29→12:30)
[2016-07-07] MEDS ORDERED: Amiodarone 150 mg/D5W 100 ml 150 MG/100 ML BAG IVPB ONE (12:30)
--- NOTE | 2016-07-07 12:36 | CON ---
DATE: 07/07/2016 A 56-year-old male with past medical history of gout and nephrolithiasis status post bilateral ureteral stent placement in 2013 (no record of it being removed since then), brought after having increased abdominal pain since the past few days. The patient found to be in severe respiratory distress and was subsequently intubated. Per family, patient does not discuss his medical history or issues with them. They did note that he has been complaining of dizziness for the past several months. Over the last week or so, appetite has been poor. The patient often seen holding his abdominal area as if in pain. Otherwise, he did not complain to them. The patient also reportedly fell 2 or 3 days ago. The patient follows up with a PMD at [facility]; however, records not currently available. The patient also was frequently using indomethacin per family. PAST MEDICAL HISTORY: As above. SOCIAL HISTORY: Previous smoker, quit about 10 years ago. FAMILY HISTORY: ____. REVIEW OF SYSTEMS: Limited due to patient being intubated and sedated. CONSTITUTIONAL: Decreased appetite. HEENT: Complaining of headaches recently. RESPIRATORY: Recent cough. CARDIOVASCULAR: No leg swelling reported. GASTROINTESTINAL: No mention of any nausea, vomiting or diarrhea. GENITOURINARY: As mentioned in HPI. VITAL SIGNS: On presentation, blood pressure 120/79, dropping this morning to 91/52 with heart rate 155, respirations 18, O2 sat 100% on 50% FiO2 via mechanical ventilation. PHYSICAL EXAMINATION: GENERAL: Tachypneic, overbreathing vent, sedated. HEENT: Moist mucous membranes. Pupils not dilated. RESPIRATORY: Lungs clear to auscultation bilaterally. No wheezes, no rhonchi, no rales. CARDIOVASCULAR: Tachycardic. Heart sounds muffled. GASTROINTESTINAL: Abdomen soft, mildly distended. GENITOURINARY: Ewing in place with minimal urine draining. EXTREMITIES: No leg edema. Distal pulses, unable to palpate bilateral dorsalis pedis pulses. SKIN: Extremities cool to touch. No cyanosis. LABORATORY DATA: WBC 29.5, hemoglobin 14.7, hematocrit 41.5, platelets 146, bands 13%. ABG done this morning, pH of 7.16, pCO2 of 19, bicarb of 6.8, pO2 of 135 on 50% FiO2. Chemistry panel: Sodium 131, potassium 3.5, chloride 98, bicarb 10, BUN 103, creatinine 9.8, glucose 156, calcium 8.3, phosphorus 6.9, magnesium 1.6. AST 64, ALT 46. T-bili 2.7. LDH 836, CK 651. Troponin I of 1.87. UA, specific gravity 1.015, urine protein 100 mg/dL, large blood, moderate leukocyte esterase 2 to ____. Chest x-ray directly observed no pulmonary vascular congestion. Abdominal CT without contrast report mentioning bilateral nephrostomy tubes in place with fullness of bilateral renal collecting system. Head CT showing bilateral small subarachnoid hemorrhages. Urine microscopy directly observed numerous RBCs per high-powered field with an incompletely suspended sediment, mostly isomorphic; however, significant number of dysmorphic cells, not classic for a glomerulonephritis, however. ASSESSMENT: 1. Acute renal failure injury. Acute kidney injury on chronic kidney disease stage IV. Oligoanuric renal failure in the setting of possible sepsis with marked leukocytosis and bands present on labs. No evidence of acute tubular necrosis or urine sediment. Prerenal cause is still in the differential. The patient is currently still being volume resuscitated, although with minimal urine output after 4 liters of normal saline. Bilateral pyelonephritis also a possibility given the presence of bilateral ureteral stents. The patient with severe elevated anion gap and non gap metabolic acidosis secondary to both lactic acidosis and renal failure. Just started on bicarb drip with D5W with 150 mEq of sodium bicarb at 200 mL per hour. However, if patient remains without significant improvement in urine output, we will need to dialyze urgently today to correct acidosis and avoid volume overload. 2. Chronic kidney disease with history of bilateral ureteral stents, and history of nephrolithiasis. Unclear how long patient went without treatment in which case prolonged obstruction would cause permanent kidney damage and hence, his ensuing chronic kidney disease. Last creatinine from earlier this month was 4.7 per primary medical doctor, which is only mildly elevated from labs that we have from 2 years ago, which may indicate that patient's obstructive process had stabilized. Nevertheless, patient already has advanced chronic renal insufficiency and needs to be prepared for chronic dialysis/transplant. We will discuss with patient and family once he is more clinically stable. 3. Nephrolithiasis, etiology unclear but patient reportedly had a history of gout and has bilateral ureteral stents in place. Unclear what was the course of urologic followup. However, there is mention of bilateral renal collecting system fullness which may indicate an ongoing obstructive process and possibly that the stents need to be changed. Agree with urology consult. 4. Lactic acidosis in the setting of apparent sepsis. Agree with fluids and antibiotics. 5. Systemic inflammatory response syndrome/sepsis. The patient with marked leukocytosis and high fever on presentation, likely secondary to urinary tract infection/pyelonephritis. Currently hypotensive and tachycardic, getting isotonic fluids, on his 5th liter currently. Started on broad spectrum antibiotics, should dose antibiotics for hemodialysis. 6. Gout. The patient on allopurinol at home. Was using indomethacin as well which likely contributed to his worsening renal failure. We will check uric acid level. Critical care time spent in taking history from family, speaking with outside PMD, discussing case with bead machine operator and setting up, coordinating hemodialysis , over 1 hour. Sandeep Han MD cc: [id number] TT: 07/07/2016 12:35:12 Confirmation # [id number] Dictation # [id number] MTDD
[2016-07-07] MEDS ORDERED: Sodium Chloride 0.9% 1,000 ML IV STA ×4 (12:52→15:56)
--- NOTE | 2016-07-07 12:55 | CP.PCM.CON ---
History of Present Illness - History of Present Illness History of Present Illness: General Surgery Consult Note for Silverio Deluca PGY1 HPI: Patient is a 56yo male with past medical history of gout, nephrolithiasis s /p b/l ureteral stent placement and CAD s/p stent placement that presented via EMS after having been found unresponsive by his family today. Patient was subsequently intubated in the field due to respiratory distress. Per family, patient was last seen in his usual state of health at ~6pm yesterday however he had been complaining of abdominal pain, dizziness and diarrhea for several days prior to presentation. Review of systems limited due to patient status. PMHx: Nephrolithiasis, Gout, CAD s/p stent placement PSHx: Bilateral ureteral stent placement Allergies: NKDA Family Hx: Noncontributory Social Hx: Per family no reports of alcohol, tobacco or illicit drug use Past Patient History - Infectious Disease Hx of Infectious Diseases: None - Past Medical History & Family History Past Medical History?: Yes - Past Social History Smoking Status: Unknown If Ever Smoked - CARDIAC Hx Cardiac Disorders: No - PULMONARY Hx Respiratory Disorders: No - NEUROLOGICAL Hx Neurological Disorder: No - HEENT Hx HEENT Problems: No - RENAL Hx Kidney Stones: Yes - ENDOCRINE/METABOLIC Hx Endocrine Disorders: No - HEMATOLOGICAL/ONCOLOGICAL Hx Blood Disorders: No - INTEGUMENTARY Hx Dermatological Problems: No - MUSCULOSKELETAL/RHEUMATOLOGICAL Hx Falls: No Hx Gout: Yes - GASTROINTESTINAL Hx Gastrointestinal Disorders: No - GENITOURINARY/GYNECOLOGICAL Hx Genitourinary Disorders: No - PSYCHIATRIC Hx Psychophysiologic Disorder: No Hx Substance Use: No - SURGICAL HISTORY Other/Comment: Renal stents - removed over a year ago Meds Allergies/Adverse Reactions: Allergies Allergy/AdvReac Type Severity Reaction Status Date / Time No Known Allergies Allergy Verified 07/29/15 10:15 - Medications Medications: Current Medications Midazolam 100 mg/100ml in NS (Midazolam 100 Mg/100ml In Ns) 100 mg in 100 mls @ 3 mls/hr IV .Q24H PRN; Protocol; 3 MG/HR PRN Reason: Agitation Last Admin: 07/07/16 10:28 Dose: 7 mg/hr, 7 mls/hr Metronidazole (Flagyl) 500 mg in 100 mls @ 100 mls/hr IVPB Q8 NICO PRN Reason: Protocol Last Admin: 07/07/16 09:15 Dose: 100 mls/hr Sodium Bicarbonate 150 meq/ (Dextrose) 1,150 mls @ 200 mls/hr IV .Q5H45M NICO Last Admin: 07/07/16 10:19 Dose: 200 mls/hr Meropenem 1g/NS 100mL IVPB (Meropenem 1g/Ns 100ml Ivpb) 1 gm in 100 mls @ 100 mls/hr IVPB Q8 NICO PRN Reason: Protocol Stop: 07/14/16 10:01 Amiodarone HCl/Dextrose (Nexterone 360 Mg In D5w 200 Ml (Premix)) 360 mg in 200 mls @ 33.333 mls/hr IV .Q6H NICO; 1 MG/MIN PRN Reason: Protocol Last Admin: 07/07/16 11:43 Dose: 33.333 mls/hr Amiodarone HCl/Dextrose (Nexterone 360 Mg In D5w 200 Ml (Premix)) 360 mg in 200 mls @ 16.667 mls/hr IV .Q12H NICO; 0.5 MG/MIN PRN Reason: Protocol Phenylephrine HCl 40 mg/ (Sodium Chloride) 254 mls @ 38.1 mls/hr IV .Q6H40M PRN ; Protocol; 100 MCG/MIN PRN Reason: TITRATE PER MD ORDER Last Admin: 07/07/16 11:42 Dose: 100 mcg/min, 38.1 mls/hr Sodium Chloride (Sodium Chloride 0.9%) 500 mls @ 999 mls/hr IV .Q31M STA Stop: 07/07/16 12:59 Sodium Chloride (Sodium Chloride 0.9%) 500 mls @ 999 mls/hr IV .Q31M STA Stop: 07/07/16 13:00 Physical Exam - Constitutional Appears: In Acute Distress - Head Exam Head Exam: NORMOCEPHALIC - Neck Exam Neck exam: Positive for: Normal Inspection - Respiratory Exam Respiratory Exam: Clear to Auscultation Bilateral. absent: Rales, Rhonchi, Wheezes - Cardiovascular Exam Cardiovascular Exam: RRR, +S1, +S2. absent: Gallop, Rubs - GI/Abdominal Exam GI & Abdominal Exam: Distended, Soft. absent: Firm, Rigid - Neurological Exam Additional comments: intubated and sedated - Skin Skin Exam: Dry, Intact, Warm Results - Vital Signs Recent Vital Signs: Last Vital Signs Temp 104.4 F H 07/07/16 05:00 Pulse 143 H 07/07/16 12:13 Resp 18 07/07/16 09:00 BP 88/44 L 07/07/16 12:13 Pulse Ox 84 L 07/07/16 12:13 - Labs Result Diagrams: 07/07/16 04:45 07/07/16 04:45 Assessment & Plan - Assessment and Plan (Free Text) Plan: 56yo male with history of CAD, nephrolithiasis admitted to the ICU due to acute hypoxic respiratory distress in the setting of septic shock, acute renal failure , bilateral subarachnoid hemorrhage. Surgery consulted for evaluation of colitis. -No acute surgical intervention planned at this time -Prognosis guarded -Continue aggressive medical management as per ICU team -Follow up recommendations of GI, ID, neurosurgery, nephrology and urology -Reviewed CT abd/pelvis, CT Head, CXR, labs -Will continue to monitor this complex patient closely and make recommendations as necessary Case discussed with attending, Dr. Kurtis Vázquez PGY1 - Date & Time Date: 07/07/16 Time: 12:55
--- NOTE | 2016-07-07 13:15 | RAD ---
HISTORY: s/p TLC insertion COMPARISON: 07/07/2016 FINDINGS: LUNGS: The right internal jugular catheter terminates near the junction of the right atrium. There is no pneumothorax. The nasogastric tube is in satisfactory position. PLEURA: No significant pleural effusion identified, no pneumothorax apparent. CARDIOVASCULAR: Normal. OSSEOUS STRUCTURES: No significant abnormalities. VISUALIZED UPPER ABDOMEN: Normal. OTHER FINDINGS: None. IMPRESSION: The right internal jugular catheter terminates near the junction of the right atrium. There is no pneumothorax. The nasogastric tube is in satisfactory position.
[2016-07-07 13:21] VITALS: BMI 24.8
[2016-07-07] MEDS ORDERED: Pneumococcal 23-Valent Vaccine IM ONE (13:21)
[2016-07-07] MEDS: Meropenem 1g/NS 100mL IVPB 1 GM/100 ML PIGGYBACK IVPB SCH ×3 (13:50→21:27)
[2016-07-07] MEDS ORDERED: NOREPINEPHRINE BIT/0.9 % NACL 4 MG/250 ML BAG IV PRN (14:13)
[2016-07-07] MEDS: NOREPINEPHRINE BIT/0.9 % NACL 4 MG/250 ML BAG IV PRN ×3 (14:20→21:20)
--- NOTE | 2016-07-07 14:20 | PCM.PROC ---
<Sharlene Brannon - Last Filed: 07/07/16 14:17> Procedures Attestation:: I certify that I have explained the specified Operation(s) or Procedure(s), risks, benefits and reasonable alternatives to the Patient and/or other person responsible. The opportunity was given to ask questions and all questions answered - Central Line Placement Right Internal Jugular Aseptic technique was employed throughout the procedure: Hand Hygiene done prior to procedure, Full sterile barriers (mask, hair cover, sterile gown, sterile gloves), Full body sterile drape, Chloraprep Antiseptic: 30 second prep for IJ or SC sites CVP Time Out Performed: Yes Pt. Placed on Pulse Ox Monitor: Yes Central Line Prep: Chlorhexidine-Alcohol Combination Local Anesthesia Used: Lidocaine 2% Amount of Anesthesia Used (mls): 2 Ultrasound Used for Placement: Yes Central Line Lumen Inserted: triple Central Line Length: 16 cm Post Procedure: Sutured in Place, Good Blood Return, All Ports Aspirated, Flushed, Capped, Sterile Dressing Applied Secured by: Suture Post procedure dressing: Clear vapor permeable, Chlorhexidine disc (Biopatch) Post Procedure X-Ray: Yes Patient Tolerated Procedure: Well, No Complications Immediate Complications: None Additional Comments: Dr. Ibrahim supervised the procedure <Devang Talbot - Last Filed: 07/07/16 17:38> Addendum Addendum: 07/07/16 17:35 Procedure: RIJ Indication: vasopressor therapy and hemodynamic monitoring After obtaining informed consent operational area was sterilized, maximum barrier precautions used. RIJ was cannulated by sterile seldinger technique under real time US guidance. Guidewire removed, hemostasis acheived, sterile dressing applied. Charter Bus Driver: Dr. Brannon Assistants: Dr. Talbot (was in the room and directly supervised the procedure in its entirety), Dr. Herron
[2016-07-07 14:52] LABS: VENOUS BLOOD GAS BASE EXCESS -16.6 mmol/L (0.0-2.0)
[2016-07-07] MEDS ORDERED: Potassium Chloride 40 mEq/30 ml LIQ UD PO ONE (14:59)
[2016-07-07 15:00] LABS: VENOUS BLOOD PH 7.17 (7.32-7.43)
[2016-07-07] MEDS ORDERED: Potassium Chloride 20 mEq/15 ml LIQ UD PO STA (15:00)
--- NOTE | 2016-07-07 15:03 | CP.PCM.HP ---
<Jessie Ladd - Last Filed: 07/07/16 16:52> History of Present Illness - History of Present Illness History of Present Illness: CC: Unresponsive on arrival 56 year old male with past medical history of hernias, gout, kidney stones with B/L nephrostomy tubes in place, questionable history of CAD with stents in place is brought to hospital unresponsive by EMS. Patient was intubated on field. History is obtained from family memebers at bedside. Per daughter, patient had been feeling "sick" for past few days. He had possible diarrhea, chills decreased appetite. Patient also had a questionable fall yesterday at home. Daughter states that patient refused to go to doctor in past few days and even after fall. She states that she found him unresponsive ont he couch at home around 4 am. Last time he was at his baseline was around 6 pm last night. Family does not have a lot of information about patient's medical history as they state that he does it share it with them. ROS are unobtainable as pt is sedated and intubated. PMHx: stated above Sx: nephrostomy tubes B/L, kideny stents in past, questionable coronary stents Rundown App Meds: called pt's [facility] in [place] ([phone]). Medications that patient has received in past include: Tobradex, Zaditor, Allopurinol ( filled 06/[address] Celena Tam), Indomethacin 50 mg BID (filled prescribed by Dr. Celena Tam), Flomax (filled 05/13, 7 day supply, filled by Dr. Celena Tam) Social: Former smoker, occasional ETOH use. No drug use PMD: Dr. Celena Tam Present on Admission - Present on Admission Any Indicators Present on Admission: No Review of Systems - Review of Systems Systems not reviewed;Unavailable: Intubated Past Patient History - Infectious Disease Hx of Infectious Diseases: None - Past Medical History & Family History Past Medical History?: Yes - Past Social History Smoking Status: Former Smoker Chewing Tobacco Use: No Cigar Use: No Home Situation {Lives}: With Family - CARDIAC Hx Cardiac Disorders: No - PULMONARY Hx Respiratory Disorders: No - NEUROLOGICAL Hx Neurological Disorder: No - HEENT Hx HEENT Problems: No - RENAL Hx Kidney Stones: Yes - ENDOCRINE/METABOLIC Hx Endocrine Disorders: No - HEMATOLOGICAL/ONCOLOGICAL Hx Blood Disorders: No - INTEGUMENTARY Hx Dermatological Problems: No - MUSCULOSKELETAL/RHEUMATOLOGICAL Hx Falls: Yes (fell hit head few days ago as pr family) - GASTROINTESTINAL Hx Gastrointestinal Disorders: No - GENITOURINARY/GYNECOLOGICAL Hx Genitourinary Disorders: No - PSYCHIATRIC Hx Psychophysiologic Disorder: No Hx Substance Use: No - SURGICAL HISTORY Other/Comment: Renal stents - removed over a year ago Meds Allergies/Adverse Reactions: Allergies Allergy/AdvReac Type Severity Reaction Status Date / Time No Known Allergies Allergy Verified 07/29/15 10:15 Physical Exam - Constitutional Appears: No Acute Distress - Head Exam Head Exam: ATRAUMATIC - Eye Exam Eye Exam: PERRL (B/L) - Respiratory Exam Respiratory Exam: Clear to Auscultation Bilateral, NORMAL BREATHING PATTERN. absent: Rales, Rhonchi, Wheezes - Cardiovascular Exam Cardiovascular Exam: Tachycardia, REGULAR RHYTHM, +S1, +S2. absent: Diastolic murmur, Gallop, Rubs, Systolic Murmur - GI/Abdominal Exam GI & Abdominal Exam: Normal Bowel Sounds, Soft - Extremities Exam Extremities exam: Negative for: pedal edema, tenderness - Neurological Exam Additional comments: Pt does not react to painful stimuli - Skin Skin Exam: Dry, Intact, Normal Color, Warm Results - Vital Signs Recent Vital Signs: Last Vital Signs Temp 104.4 F H 07/07/16 13:08 Pulse 155 H 07/07/16 13:08 Resp 39 H 07/07/16 14:31 BP 78/52 L 07/07/16 14:09 Pulse Ox 100 07/07/16 14:31 - Labs Result Diagrams: 07/07/16 04:45 07/07/16 04:45 Assessment & Plan - Assessment and Plan (Free Text) Assessment: 56 year old male with past medical history of hernias, gout, kidney stones with B/L nephrostomy tubes in place, questionable history of CAD with stents is admitted for septic shock secondary to urosepsis vs. colitis with end organ dysfunction. Patient also had acute respiratory distress and was intubated on the field. On admission to hospital CT of head showed B/L small SAH R>L and small posterior left soft tissue scalp hematoma. CT of abdomen showed colitis in Left colon through rectosigmoid. EKG showed fusion complexes with HR of 160. CXR showed B/L nephrostomy tubes, mild bibasilar atelectasis. Patient was hypotensive with MAP of 66 on examination. HR was 160s. Unstable vital signs likely due to septic shock. On blood work, WBC count was 29.5. There were electrolyte abnormalities noted: Na 131 and K 3.5. Patient's Cr was 9.8 (last value from 2013 was 3.5). VBG done on admission showed lactic acid of 5.5. Repeat ABG lactic acid was 4.6 ABG also showed metabolic acidosis without resp compensation. UDS and ETOH level was negative. Urinalysis was positive for UTI and no contamination noted. 1. Septic shock likely 2/2 UTI vs. colitis - ID, Dr. Anderson is consulted - Sx, Dr. Hull consulted - GI, Dr. Saunders consulted - Patient received 30ml/kg IV fluids in ED. Pt is on D5 in water with bicarb - Patient is currently on and levophed - Hydrocortisone 50 mg IVP q6 - Abx: Vanco, meropenem, flagyl - Will check porcal, HIV. Will check blood, urine, c diff and MRSA cultures - Central line placed 2. Acute respiratory distress likely 2/2 #1 - Intubated on PRVC - NPO - NG tube in place - Versed for sedation 3. Subarachanoid hemorrhage B/L - Will monitor with repeat CT - Neurosurgery is consulted. ED physician spoke with neurosurgery, no surgical intervention at this time - Anticoagulation contraindicated 4. Elevated troponins - elevated troponin on admission 1.8 - Will check serial trops and EKG - Cardiology, Dr. Lee 5. B/L nephrostomy tube - Nephrology, Dr. Han is consulted - Will continue to monitor kidney function. If worsening then patient will need emergent dialysis Prophylaxis Protonix 40 mg IV daily SCDs Palliative care is consulted. Case discussed with attending, Dr. Randolph - Date & Time Date: 07/07/16 Time: 16:28 <Jacqueline Randolph - Last Filed: 07/11/16 16:55> Results - Vital Signs Recent Vital Signs: Last Vital Signs Temp 99 F 07/09/16 00:00 Pulse 117 H 07/09/16 06:00 Resp 14 07/09/16 06:00 BP 0/0 L 07/09/16 06:00 Pulse Ox 84 L 07/09/16 06:00 - Labs Result Diagrams: 07/08/16 06:50 07/08/16 06:50 Attending/Attestation - Attestation I have personally seen and examined this patient.: Yes I have fully participated in the care of the patient.: Yes I have reviewed all pertinent clinical information: Yes Notes (Text): I have seen and examined this patient at bedside. Briefly this is 56 year old male with history of gout, kidney stones with B/L nephrostomy tubes in place, questionable history of CAD with stents in place who was brought for evaluation of unrespoonsive and found to have septic shock most likely due to urosepsis vs Colitis, Ventilation dependent respiratory failure, Bilateral small subaracnoid hemorrhage, elevated troponins, acute on chronic renal failure and retained nephrostomy tubes. Will consult ID, Surgery, GI, Renal, Neurosurgery, neurology and cardiology. Patients prognosis is guarded. He will be closely monitored in ICU. Discussed with marketing director. Discussed in detail with patients daughter. Upon discharge patient will follow up with Dr Xavi Tam. Dr Jacqueline Randolph
--- NOTE | 2016-07-07 15:04 | CP.PCM.CON ---
History of Present Illness - History of Present Illness History of Present Illness: Palliative consult requested by Dr Lisa Herron Reason: Goals of care 56 year old male found unresponsive at home, ACLS, intubated in the field. Last seen by family members at 6 pm last evening. According to his family he had been complaining of weakness,abdominal pain and diarrhea and for the past few days. CT scan of chest/abdomen bibasilar infiltrates R>L,inflammatory changes in colon associated with colitis,large amounts of fecal matter in the right and proximal transverse colon. Hepatic steatosis, pancreatic atrophy,bilateral nephrostomy tubes and a 2.1 cm right renal exophytic lesion. CT of the head showed bilateral small subarachnoid hemorrhages, small soft tissue hematoma left posterior scalp. Toxicology screening negative. Labs; leukocytosis, BUN 103 , creat. 9.8, elevated LFT's. Urine positive WBC's, negative nitrates. PMHx: gout, s/p hernia repair,kidney stones, CAD, bilateral nephrostomy tubes. Family History: Grandfather and sister had gout. Social History: Former smoker, occasional alcohol,no drug use.Single, lives with his mother. Advance Care Planning: The patient did not have an Advance Directive. Review of systems: Unable to obtain, intubated,sedated Past Patient History - Infectious Disease Hx of Infectious Diseases: None - Past Medical History & Family History Past Medical History?: Yes - Past Social History Smoking Status: Former Smoker - CARDIAC Hx Cardiac Disorders: No - PULMONARY Hx Respiratory Disorders: No - NEUROLOGICAL Hx Neurological Disorder: No - HEENT Hx HEENT Problems: No - RENAL Hx Kidney Stones: Yes - ENDOCRINE/METABOLIC Hx Endocrine Disorders: No - HEMATOLOGICAL/ONCOLOGICAL Hx Blood Disorders: No - INTEGUMENTARY Hx Dermatological Problems: No - MUSCULOSKELETAL/RHEUMATOLOGICAL Hx Falls: Yes (fell hit head few days ago as pr family) - GASTROINTESTINAL Hx Gastrointestinal Disorders: No - GENITOURINARY/GYNECOLOGICAL Hx Genitourinary Disorders: No - PSYCHIATRIC Hx Psychophysiologic Disorder: No Hx Substance Use: No - SURGICAL HISTORY Other/Comment: Renal stents - removed over a year ago Meds Allergies/Adverse Reactions: Allergies Allergy/AdvReac Type Severity Reaction Status Date / Time No Known Allergies Allergy Verified 07/29/15 10:15 - Medications Medications: Current Medications Hydrocortisone Sodium Succinate (Solu-Cortef) 50 mg IV Q6 NICO Metronidazole (Flagyl) 500 mg in 100 mls @ 100 mls/hr IVPB Q8 NICO PRN Reason: Protocol Last Admin: 07/07/16 13:50 Dose: 100 mls/hr Sodium Bicarbonate 150 meq/ (Dextrose) 1,150 mls @ 200 mls/hr IV .Q5H45M NICO Last Admin: 07/07/16 10:19 Dose: 200 mls/hr Meropenem 1g/NS 100mL IVPB (Meropenem 1g/Ns 100ml Ivpb) 1 gm in 100 mls @ 100 mls/hr IVPB Q8 NICO PRN Reason: Protocol Stop: 07/14/16 10:01 Last Admin: 07/07/16 14:11 Dose: Not Given Phenylephrine HCl 40 mg/ (Sodium Chloride) 254 mls @ 38.1 mls/hr IV .Q6H40M PRN ; Protocol; 100 MCG/MIN PRN Reason: TITRATE PER MD ORDER Last Titration: 07/07/16 14:52 Dose: 250 mcg/min, 95.25 mls/hr Vasopressin 20 units/ Sodium (Chloride) 101 mls @ 9.09 mls/hr IV .Q11H7M NICO; 0.03 U/MIN PRN Reason: Protocol Last Admin: 07/07/16 14:09 Dose: 9.09 mls/hr NOREPINEPHRINE BIT/0.9 % NACL (Levophed 4 Mg/ 250 Ml Ns Premixed) 4 mg in 250 mls @ 18.75 mls/hr IV .[id number] PRN; Protocol; 5 MCG/MIN PRN Reason: TITRATE PER MD ORDER Last Titration: 07/07/16 14:41 Dose: 10 mcg/min, 37.5 mls/hr Sodium Chloride (Sodium Chloride 0.9%) 1,000 mls @ 999 mls/hr IV .Q1H1M STA Stop: 07/07/16 15:16 Last Admin: 07/07/16 14:21 Dose: 999 mls/hr Midazolam 100 mg/100ml in NS (Midazolam 100 Mg/100ml In Ns) 100 mg in 100 mls @ 1 mls/hr IV .Q24H PRN; Protocol; 1 MG/HR PRN Reason: Sedation Last Admin: 07/07/16 14:43 Dose: 1 mg/hr, 1 mls/hr Physical Exam - Constitutional Appears: No Acute Distress - Head Exam Additional comments: hematoma left posterior scalp - Eye Exam Eye Exam: PERRL - ENT Exam ENT Exam: Mucous Membranes Moist - Respiratory Exam Respiratory Exam: Decreased Breath Sounds, NORMAL BREATHING PATTERN - Cardiovascular Exam Cardiovascular Exam: Tachycardia, Irregular Rhythm, +S1, +S2 - GI/Abdominal Exam GI & Abdominal Exam: Normal Bowel Sounds, Soft - Extremities Exam Extremities exam: Positive for: pedal pulses present - Skin Skin Exam: Dry, Pallor - Additional Findings Additional findings: Palliative performance scale rating 10 % Results - Vital Signs Recent Vital Signs: Last Vital Signs Temp 104.4 F H 07/07/16 13:08 Pulse 155 H 07/07/16 13:08 Resp 39 H 07/07/16 14:31 BP 78/52 L 07/07/16 14:09 Pulse Ox 100 07/07/16 14:31 - Labs Result Diagrams: 07/07/16 04:45 07/07/16 04:45 Labs: Laboratory Results - last 24 hr 07/07/16 14:30 pO2 50 VBG pH 7.17 L* VBG pCO2 29.0 L VBG HCO3 10.6 L VBG Total CO2 11.5 L VBG O2 Sat (Calc) 85.1 H VBG Base Excess -16.6 L VBG Potassium 2.3 L* Sodium 134.0 Chloride 112.0 H Glucose 109 Lactate 3.5 H FiO2 21.0 Venous Blood Potassium 2.3 L* Assessment & Plan - Assessment and Plan (Free Text) Assessment: 56 year old male found in cardiopulmonary arrest at home. s/p ACLS> intubated> pressor support. He is admitted with sepsis secondary to UTI and colitis. Also found to have small bilateral subarachnoid hemorrhages, atrial fibrillation,CHRISTINA. Patient's mother and siblings at bedside. Palliative services introduced as support system for family. Family is is appreciative of input. They are extremely traumatized by their family members situation. Psychosocial support given. Spiritual support offered. Family requesting a stage electrician helper only at this time. Plan: Will follow and assist family with establishing goals of care
[2016-07-07] MEDS ORDERED: Magnesium Sulfate 2 GM in Sodium Chloride 0.9% 100 ML IVPB ONE (15:12)
[2016-07-07] MEDS ORDERED: Metoprolol 1 mg/ml Inj IVP ONE (15:50)
[2016-07-07 16:35] LABS: ARTERIAL BLOOD GAS HCO3 9.3 mmol/L (21-28); ARTERIAL BLOOD GAS O2 CAPACITY 15.1 mL/dl (16-24); ARTERIAL BLOOD GAS O2 CONTENT 14.6 ML/dl (15-23); ARTERIAL BLOOD HGB O2 SAT 95.8 % (95.0-98.0); CARBOXYHEMOGLOBIN 0 % (0.5-1.5); HHB 3.4 % (0-5); METHEMOGLOBIN 0.8 % (0.0-3.0)
[2016-07-07 16:40] LABS: HEMATOCRIT 29.8 % (42.0-52.0); MEAN CELL VOLUME 81.6 fL (80.0-105.0); MEAN CORPUSCULAR HGB CONC 35.6 g/dl (31.0-37.0); PLATELET COUNT 75 10^3/uL (120.0-450.0); RED CELL DISTRIBUTION WIDTH 15.4 % (11.5-14.5); WHITE BLOOD COUNT 12.6 10^3/ul (4.5-11.0)
--- NOTE | 2016-07-07 16:45 | CP.PCM.CON ---
History of Present Illness - History of Present Illness History of Present Illness: History tand details taken from conversations with ICU doctor, nurses and medical residents. 56 year old male with PMH of HTN, gout, history of nephrolithiasis S/P bilateral nephrostomy tube placement, questionable history of CAD was brought in to [facility] after family members found the patient unconscious and unresponsive at home on the couch. Apparently the patient had been feeling ill for the past 2-3 days, had decreased appetite and may have had diarrhea. Patient may also have had a fall at home but still did not see a physician. He was found unresponsive by EMS about 4 am this morning and was intubated in the field and brought to the ED. In the ED, he was placed on the ventilator, and was found to be febrile at 104.[address] scan of the abdomen and pelvis revealed left sided colitis and CT head showed bilateral small subarachnoid hemorrhages. He also had leukocytosis and hypotensive, and in acute renal failure and Infectious diseases consult is requested to further evaluate and manage. Review of Systems - Review of Systems Systems not reviewed;Unavailable: Altered Mental Status, Intubated Past Patient History - Infectious Disease Hx of Infectious Diseases: None - Past Medical History & Family History Past Medical History?: Yes - Past Social History Smoking Status: Former Smoker - CARDIAC Hx Cardiac Disorders: No - PULMONARY Hx Respiratory Disorders: No - NEUROLOGICAL Hx Neurological Disorder: No - HEENT Hx HEENT Problems: No - RENAL Hx Kidney Stones: Yes - ENDOCRINE/METABOLIC Hx Endocrine Disorders: No - HEMATOLOGICAL/ONCOLOGICAL Hx Blood Disorders: No - INTEGUMENTARY Hx Dermatological Problems: No - MUSCULOSKELETAL/RHEUMATOLOGICAL Hx Falls: Yes (fell hit head few days ago as pr family) - GASTROINTESTINAL Hx Gastrointestinal Disorders: No - GENITOURINARY/GYNECOLOGICAL Hx Genitourinary Disorders: No - PSYCHIATRIC Hx Psychophysiologic Disorder: No Hx Substance Use: No - SURGICAL HISTORY Other/Comment: Renal stents - removed over a year ago Meds Allergies/Adverse Reactions: Allergies Allergy/AdvReac Type Severity Reaction Status Date / Time No Known Allergies Allergy Verified 07/29/15 10:15 - Medications Medications: Current Medications Hydrocortisone Sodium Succinate (Solu-Cortef) 50 mg IVP Q6H NICO Metronidazole (Flagyl) 500 mg in 100 mls @ 100 mls/hr IVPB Q8 NICO PRN Reason: Protocol Last Admin: 07/07/16 13:50 Dose: 100 mls/hr Sodium Bicarbonate 150 meq/ (Dextrose) 1,150 mls @ 200 mls/hr IV .Q5H45M NICO Last Admin: 07/07/16 15:53 Dose: 200 mls/hr Phenylephrine HCl 40 mg/ (Sodium Chloride) 254 mls @ 38.1 mls/hr IV .Q6H40M PRN ; Protocol; 100 MCG/MIN PRN Reason: TITRATE PER MD ORDER Last Titration: 07/07/16 15:53 Dose: 100 mcg/min, 38.1 mls/hr Vasopressin 20 units/ Sodium (Chloride) 101 mls @ 9.09 mls/hr IV .Q11H7M NICO; 0.03 U/MIN PRN Reason: Protocol Last Admin: 07/07/16 14:09 Dose: 9.09 mls/hr NOREPINEPHRINE BIT/0.9 % NACL (Levophed 4 Mg/ 250 Ml Ns Premixed) 4 mg in 250 mls @ 18.75 mls/hr IV .[id number] PRN; Protocol; 5 MCG/MIN PRN Reason: TITRATE PER MD ORDER Last Titration: 07/07/16 15:50 Dose: 20 mcg/min, 75 mls/hr Midazolam 100 mg/100ml in NS (Midazolam 100 Mg/100ml In Ns) 100 mg in 100 mls @ 1 mls/hr IV .Q24H PRN; Protocol; 1 MG/HR PRN Reason: Sedation Last Admin: 07/07/16 14:43 Dose: 1 mg/hr, 1 mls/hr Potassium Chloride (Potassium Chloride 20 Meq/100 Ml) 20 meq in 100 mls @ 50 mls/hr IVPB Q2H NICO Stop: 07/07/16 19:14 Last Admin: 07/07/16 15:33 Dose: 50 mls/hr Sodium Chloride (Sodium Chloride 0.9%) 1,000 mls @ 999 mls/hr IV .Q1H1M STA Stop: 07/07/16 16:56 Last Admin: 07/07/16 16:00 Dose: 999 mls/hr Meropenem 1g/NS 100mL IVPB (Meropenem 1g/Ns 100ml Ivpb) 1 gm in 100 mls @ 100 mls/hr IVPB Q12 NICO PRN Reason: Protocol Stop: 07/14/16 22:01 Vancomycin HCl (Vancocin 25 Mg/Ml (Oral Use)) 500 mg PO Q6H NICO PRN Reason: Protocol Physical Exam - Constitutional Appears: In Acute Distress, Other (Intubated ) - Head Exam Head Exam: NORMAL INSPECTION - ENT Exam Additional comments: ET tube in place - Neck Exam Neck exam: Negative for: Meningismus - Respiratory Exam Respiratory Exam: Decreased Breath Sounds, Rhonchi (bilateral) - Cardiovascular Exam Cardiovascular Exam: Tachycardia, +S1, +S2 - GI/Abdominal Exam GI & Abdominal Exam: Soft. absent: Tenderness Results - Vital Signs Recent Vital Signs: Last Vital Signs Temp 102.6 F H 07/07/16 15:44 Pulse 137 H 07/07/16 16:03 Resp 39 H 07/07/16 14:31 BP 79/31 L 07/07/16 16:03 Pulse Ox 99 07/07/16 16:03 - Labs Result Diagrams: 07/07/16 04:45 07/07/16 04:45 Labs: Laboratory Results - last 24 hr 07/07/16 07/07/16 14:30 14:30 pO2 50 VBG pH 7.17 L* VBG pCO2 29.0 L VBG HCO3 10.6 L VBG Total CO2 11.5 L VBG O2 Sat (Calc) 85.1 H VBG Base Excess -16.6 L VBG Potassium 2.3 L* Sodium 134.0 Chloride 112.0 H Glucose 109 Lactate 3.5 H FiO2 21.0 Lactate Dehydrogenase 1240 H Total Creatine Kinase 1113 H CK-MB (CK-2) 25.7 H CK-MB (CK-2) % 2.3 L Venous Blood Potassium 2.3 L* Assessment & Plan - Assessment and Plan (Free Text) Plan: Assessment Septic shock with multiorgan dysfunction syndrome (acute encephalopathy, acute on chronic renal failure, ventilator-dependent respiratory failure) probably due to left sided colitis, R/O C. diff. colitis, R/O ischemic colitis small bilateral subarachnoid hemorrhage HTN gout history of nephrolithiasis S/P bilateral nephrostomy tube placement questionable history of CAD Plan gave a dose of IV vanco, a dose of IV gentamicin, and started Merrem pending blood cx, urine cx, sputum cx; reviewed CT A/P which showed left sided colitis; has been started on IV Flagyl and PO Vancomycin and will await stool for C. diff. Prognosis is guarded at best Will monitor clinical response
[2016-07-07 16:47] LABS: ARTERIAL BLOOD GAS PH 7.18 (7.35-7.45)
[2016-07-07 16:53] LABS: ADD MANUAL DIFF? YES
[2016-07-07 17:09] LABS: POTASSIUM 2.9 mmol/L (3.6-5.0)
[2016-07-07 17:10] LABS: CALCIUM 6.4 mg/dL (8.4-10.5)
[2016-07-07 17:51] LABS: ALB/GLOB RATIO 0.9 (1.1-1.8); BILIRUBIN,TOTAL 1.8 mg/dL (0.2-1.3); TOTAL PROTEIN 3.6 g/dL (5.8-8.3)
[2016-07-07] MEDS: Vancomycin 25 MG/ML PO SCH ×2 (18:05→21:29)
[2016-07-07 18:16] LABS: TROPONIN I 4.57 ng/mL
--- NOTE | 2016-07-07 18:30 | CARD ---
APPROVED REPORT EXAM: Two-dimensional and M-mode echocardiogram with Doppler and color Doppler. INDICATION Cardiomyopathy 2D DIMENSIONS Left Atrium (2D)2.5 (1.6-4.0cm)IVSd1.1 (0.7-1.1cm) LVDd4.2 (3.9-5.9cm)PWd0.9 (0.7-1.1cm) LVDs3.3 (2.5-4.0cm)FS (%) 21.9 % LVEF (%)44.7 (>50%) M-Mode DIMENSIONS Aortic Root2.60 (2.2-3.7cm)Aortic Cusp Exc.1.60 (1.5-2.0cm) Aortic Valve AoV Peak Dqvtizix754.0cm/Martina Peak GR.7mmHg Mitral Valve E/A ratio0.0 TDI E/Lateral E'0.0E/Medial E'0.0 Tricuspid Valve TR Peak [id number] [id number] Peak Gr.12mmHg [id number] LEFT VENTRICLE The left ventricle is normal size. There is normal left ventricular wall thickness. The systolic function is moderately impaired. There is global hypokinesis of the left ventricle. Transmitral Doppler flow pattern is Grade I-abnormal relaxation pattern. RIGHT VENTRICLE The right ventricle is normal size. There is normal right ventricular wall thickness. The right ventricular systolic function is normal. ATRIA The left atrium size is normal. The right atrium size is normal. AORTIC VALVE The aortic valve is not well visualized. No aortic regurgitation is present. MITRAL VALVE The mitral valve is normal in structure. There is no mitral valve regurgitation noted. TRICUSPID VALVE There is no pulmonary hypertension. GREAT VESSELS The aortic root is normal in size. The IVC is stenotic. PERICARDIAL EFFUSION There is a trace loculated anterior pericardial effusion. <Conclusion> The left ventricle is normal size. There is normal left ventricular wall thickness. The systolic function is moderately impaired. There is global hypokinesis of the left ventricle. Transmitral Doppler flow pattern is Grade I-abnormal relaxation pattern.
--- NOTE | 2016-07-07 18:35 | CARD ---
APPROVED REPORT EKG Measurement Heart [id number] <Conclusion> Sinus tachycardia Low voltage QRS Borderline ECG
[2016-07-07] MEDS: White Petrolatum Ophth Oint (Puralube) OU SCH ×2 (18:41→23:15)
[2016-07-07] MEDS ORDERED: Mannitol 12.5 gm/50 ml Inj IV ONE (18:51)
[2016-07-07 18:58] LABS: BAND 12 % (0-2); EOSINOPHIL 1 % (0.0-3.0); NEUTROPHIL 73 % (50.0-70.0)
[2016-07-07 18:59] LABS: PLATELET ESTIMATE NORMAL (NORMAL)
--- NOTE | 2016-07-07 19:34 | CON ---
DATE: 07/07/2016 REASON FOR CONSULTATION: Sinus tachycardia. HISTORY OF PRESENT ILLNESS: The patient is a 56-year-old male who was admitted to the ICU because of colitis, hypertension and sinus tachycardia. Apparently, the patient sustained a fall and head CT s can was consistent with bilateral subarachnoid hemorrhage. The patient was given earlier amiodarone intravenously for the possibility of SVT; however, review of rhythm strips and EKGs were consistent w ith sinus tachycardia. MEDICATIONS: IV Flagyl 500 mg intravenously q. 8 hours, IV meropenem 1 gram intravenously q. 8 hours , midazolam infusion for agitation, infusion, Solu-Cortef gram intravenously q. 6 hours, vasopressin infusion. REVIEW OF SYSTEMS: No reported seizures. No reported rectal bleeding. PHYSICAL EXAMINATION: GENERAL: The patient is a middle-aged male who is sedated on the ventilator. VITAL SIGNS: Blood pressure 91/52, heart rate 155, sinus tachycardia , temperature 104.4. HEENT: No pallor. There is mild icterus. NECK: No JVD. CHEST: Clear. HEART: S1, S2 regular. EXTREMITIES: No edema. LABORATORY DATA: SMA-7: Sodium 131, potassium 3.5, chloride 98, CO2 of 10, glucose 156, BUN 103, cr eatinine 9.8, troponin is 1.87, hemoglobin and hematocrit 14.7 and 41.5, white count and platelet cou nt 29.5 and 146,000. INR is 1.24, PTT 35.9. Review of the EKGs revealed sinus tachycardia. The lat est EKG with a rate of 142. Abdomen and pelvis CT scan, left greater than right bibasilar atelectasi s or infiltrate, left colon through the rectosigmoid colon with associated inflammatory changes. A l arge amount of retained colonic fecal material in the right and proximal transverse colon. Hepatic s teatosis. Pancreatic atrophy. A 2.1 right renal exophytic lesion measures higher than expected for a simple cyst. Bilateral adrenal gland hypertrophy and bilateral inguinal hernia. Head CT scan with out contrast findings consistent with small bilateral subarachnoid hemorrhage. ASSESSMENT: 1. Hypotension and sinus tachycardia, most likely related to colitis with the possibility of septic shock. 2. No evidence of supraventricular tachycardia. 3. Bilateral small subarachnoid hemorrhage. 4. Acute renal failure. RECOMMENDATIONS: Case was discussed with rn lpn cna. Optimize intravenous hydration. Continue cur rent pressors. Obtain a bedside echocardiogram. No further antiarrhythmic medications are needed. Rafa Lee MD cc: [id number] TT: 07/07/2016 19:33:42 Confirmation # [id number] Dictation # [id number] mn
--- NOTE | 2016-07-07 21:13 | CON ---
DATE: 07/07/2016 I was contacted about this sounding like a very unfortunate gentleman who was admitted to the [facility] unresponsive in septic shock, was found to have pyelonephritis. In the course of his workup, he rush d imaging of the brain, which documented a small parietal subarachnoid hemorrhage. Neurosurgical pao luation was requested. Essentially, the scan showed an absolutely minute amount of subarachnoid blood in one high left parie marilee sulcus, undoubtedly traumatic in nature. More than likely, the patient bumped his head on the wa y down. This is not of any clinical significance. My simple recommendation would be to hold off any type of anticoagulation/DVT prophylaxis for 48 hour s, perhaps repeat the scan in 24-48 hours as well. Again, more than likely this is a simple minute t raumatic subarachnoid hemorrhage of no clinical import. Obviously, the patient's overall infection, sepsis, should be treated as necessary. Dada Mares MD cc: [id number] TT: 07/07/2016 21:13:25 Confirmation # [id number] Dictation # [id number] ollie
[2016-07-07 21:39] LABS: ADD MANUAL DIFF? NO
[2016-07-07 21:43] LABS: VENOUS BLOOD GAS BASE EXCESS -14.6 mmol/L (0.0-2.0)
[2016-07-07 21:45] LABS: MEAN CELL VOLUME 82.1 fL (80.0-105.0); MEAN CORPUSCULAR HEMOGLOBIN 29.5 pg (25.0-35.0); MEAN CORPUSCULAR HGB CONC 35.9 g/dl (31.0-37.0); PLATELET COUNT 65 10^3/uL (120.0-450.0); RED CELL DISTRIBUTION WIDTH 15.4 % (11.5-14.5); WHITE BLOOD COUNT 17.8 10^3/ul (4.5-11.0)
[2016-07-07 21:51] LABS: ALB/GLOB RATIO 0.9 (1.1-1.8); BILIRUBIN,TOTAL 2.4 mg/dL (0.2-1.3); POTASSIUM 3.4 mmol/L (3.6-5.0); TOTAL PROTEIN 3.8 g/dL (5.8-8.3)
[2016-07-07 22:08] LABS: TROPONIN I 7.3 ng/mL
[2016-07-07 22:09] LABS: CALCIUM 6.6 mg/dL (8.4-10.5)
[2016-07-08] MEDS: NOREPINEPHRINE BIT/0.9 % NACL 4 MG/250 ML BAG IV PRN ×5 (00:58→18:53)
[2016-07-08] MEDS: Vancomycin 25 MG/ML PO SCH ×4 (04:00→21:45)
[2016-07-08] MEDS: Sodium Bicarbonate 8.4% 150 MEQ in Dextrose 5% In Water 1,000 ML IV SCH ×3 (04:56→18:54)
[2016-07-08] MEDS: metroNIDAZOLE IV 500 mg/100 ml 500 MG/100 ML BAG IVPB SCH ×3 (06:06→22:00)
[2016-07-08 07:08] LABS: VENOUS BLOOD GAS BASE EXCESS -12.6 mmol/L (0.0-2.0); VENOUS BLOOD PH 7.21 (7.32-7.43)
[2016-07-08 07:10] LABS: BASO # 0.37 K/mm3 (0.0-2.0); BASO % 1.5 % (0.0-3.0); GRAN # 23.08 (1.4-6.5); HEMATOCRIT 33.3 % (42.0-52.0); LYMPH # 1.2 (1.2-3.4); LYMPH % 4.6 % (22.0-35.0); MEAN CELL VOLUME 80.8 fL (80.0-105.0); MEAN CORPUSCULAR HEMOGLOBIN 29.1 pg (25.0-35.0); MONO # 0.7 (0.1-0.6); MONO % 2.9 % (1.0-6.0); PLATELET COUNT 96 10^3/uL (120.0-450.0); RED CELL DISTRIBUTION WIDTH 15.4 % (11.5-14.5)
[2016-07-08 07:46] LABS: WHITE BLOOD COUNT 25.4 10^3/ul (4.5-11.0)
[2016-07-08 07:47] LABS: ADD MANUAL DIFF? NO
[2016-07-08 08:05] LABS: ALB/GLOB RATIO 0.9 (1.1-1.8); BILIRUBIN,TOTAL 2.7 mg/dL (0.2-1.3); POTASSIUM 3.6 mmol/L (3.6-5.0)
--- NOTE | 2016-07-08 08:06 | CP.PCM.PN ---
Subjective - Date & Time of Evaluation Date of Evaluation: 07/08/16 Time of Evaluation: 08:02 - Subjective Subjective: General surgery progress note for Silverio Deluca PGY1 Patient seen and examined at bedside this morning in conjunction with surgery team. No acute overnight events reported. Prognosis remains guarded. Etiology of colitis at this time is suspected to be infectious in origin, likely cdiff given his prolonged use of antibiotics. Pending cdiff studies. Continue abx as per ID recommendations. 12point ROS limited due to patient status. Objective - Vital Signs/Intake and Output Vital Signs (last 24 hours): Temp Pulse Resp BP Pulse Ox 100.5 F H 136 H 39 H 98/71 L 32 L 07/08/16 06:00 07/08/16 07:02 07/07/16 14:31 07/08/16 06:36 07/08/16 06:40 Intake and Output: 07/08/16 07/08/16 06:59 18:59 Intake Total 14194 Output Total 300 Balance 34091 - Medications Medications: Current Medications Artificial Tears (Puralube Opht Oint) 2 appl OU Q2H NICO Last Admin: 07/07/16 23:15 Dose: 1 applic Hydrocortisone Sodium Succinate (Solu-Cortef) 50 mg IVP Q6H NICO Last Admin: 07/08/16 05:00 Dose: 50 mg Metronidazole (Flagyl) 500 mg in 100 mls @ 100 mls/hr IVPB Q8 NICO PRN Reason: Protocol Last Admin: 07/08/16 06:06 Dose: 100 mls/hr Sodium Bicarbonate 150 meq/ (Dextrose) 1,150 mls @ 200 mls/hr IV .Q5H45M NICO Last Admin: 07/08/16 04:56 Dose: 200 mls/hr Phenylephrine HCl 40 mg/ (Sodium Chloride) 254 mls @ 38.1 mls/hr IV .Q6H40M PRN ; Protocol; 100 MCG/MIN PRN Reason: TITRATE PER MD ORDER Last Admin: 07/08/16 04:56 Dose: 200 mcg/min, 76.2 mls/hr Vasopressin 20 units/ Sodium (Chloride) 101 mls @ 9.09 mls/hr IV .Q11H7M NICO; 0.03 U/MIN PRN Reason: Protocol Last Admin: 07/08/16 00:53 Dose: 9.09 mls/hr NOREPINEPHRINE BIT/0.9 % NACL (Levophed 4 Mg/ 250 Ml Ns Premixed) 4 mg in 250 mls @ 18.75 mls/hr IV .[id number] PRN; Protocol; 5 MCG/MIN PRN Reason: TITRATE PER MD ORDER Last Admin: 07/08/16 04:54 Dose: 20 mcg/min, 75 mls/hr Midazolam 100 mg/100ml in NS (Midazolam 100 Mg/100ml In Ns) 100 mg in 100 mls @ 1 mls/hr IV .Q24H PRN; Protocol; 1 MG/HR PRN Reason: Sedation Last Admin: 07/07/16 14:43 Dose: 1 mg/hr, 1 mls/hr Meropenem 1g/NS 100mL IVPB (Meropenem 1g/Ns 100ml Ivpb) 1 gm in 100 mls @ 100 mls/hr IVPB Q12 NICO PRN Reason: Protocol Stop: 07/14/16 22:01 Last Admin: 07/07/16 21:27 Dose: 100 mls/hr Pantoprazole Sodium (Protonix Inj) 40 mg IVP DAILY NICO Last Admin: 07/07/16 18:06 Dose: 40 mg Vancomycin HCl (Vancocin 25 Mg/Ml (Oral Use)) 500 mg PO Q6H NICO PRN Reason: Protocol Last Admin: 07/08/16 04:00 Dose: 500 mg - Labs Labs: 07/08/16 06:50 07/07/16 21:38 PT 13.4 Seconds (9.9-11.8) H 07/07/16 04:45 INR 1.24 (0.93-1.08) H 07/07/16 04:45 APTT 35.9 Seconds (23.7-30.8) H 07/07/16 04:45 - Head Exam Head Exam: NORMAL INSPECTION, NORMOCEPHALIC - Respiratory Exam Respiratory Exam: Clear to Ausculation Bilateral. absent: Rales, Rhonchi, Wheezes - Cardiovascular Exam Cardiovascular Exam: RRR, +S1, +S2. absent: Gallop, Rubs - GI/Abdominal Exam GI & Abdominal Exam: Soft. absent: Distended, Firm, Rigid - Neurological Exam Neurological Exam: absent: Alert, Awake, Oriented x3 - Skin Skin Exam: Dry, Intact, Warm Assessment and Plan - Assessment and Plan (Free Text) Plan: 56yo male with history of CAD, nephrolithiasis admitted to the ICU due to acute hypoxic respiratory distress in the setting of septic shock, acute renal failure , bilateral subarachnoid hemorrhage. Surgery consulted for evaluation of colitis. -No acute surgical intervention planned at this time -Prognosis remains guarded -Pending cdiff antibody/toxin results; Etiology of colitis is thought to be infectious in origin, likely cdiff given his prolonged course of antibiotics prior to presentation -Continue aggressive medical management as per ICU team -Follow up recommendations of GI, ID, neurosurgery, nephrology and urology -Reviewed CT abd/pelvis, CT Head, CXR, labs -Will continue to monitor this complex patient closely and make recommendations as necessary Case discussed with attending, Dr. Kurtis Vázquez PGY1
--- NOTE | 2016-07-08 08:09 | CON ---
DATE: 07/07/2016 HISTORY OF PRESENT ILLNESS: The patient was seen in the ICU. I reviewed the chart that was generate d through . His impression was septic shock with multisystem organ failure, acute encephalopath y, acute on chronic renal failure, ventilator dependent respiratory failure, left-sided colitis, rule out C. diff, rule out ischemic bilateral subarachnoid hemorrhage, gout, nephrolithiasis, status post stents placed in both kidneys. There is a CAT scan that I reviewed personally showing the stents in place. There is a dilated cecum consistent with constipation, a descending colon and rectosigmoid wi th thick-walled colon consistent with colitis. There are no vascular abnormalities that I can see in the blood vessels. The patient has been on chronic antibiotics and this is C. diff. LABORATORY: Remarkable for a white count of 29.5 on admission down to 12 today. PT is 13/35. SMA-1 8 remarkable for an elevated bili of 2.7, BUN of 103, creatinine of 9.8, calcium of 8.3 which is in t he normal range. Total bili of 2.7, AST of 64 slightly elevated. Alk phos 169, again, slightly elev ated. ALT 46 which is in the high normal. Ammonia is 20 which is normal. Troponins pending as of t his afternoon. PHYSICAL EXAMINATION: GENERAL: He is intubated and not responsive to pain. His CT of the head on at 4:00 in the [facility] felicia: Small subarachnoid hemorrhages and a left posterior scalp hematoma. He is on the respirator a nd tolerating it well. HEART: Without a murmur. ABDOMEN: Somewhat distended. It is difficult to examine for tenderness. There is no liver, kidney, spleen or mass. The rectal has no tone and has a thin rectal fluid without obvious blood or mucus. There is no microbiology back yet. IMPRESSION: Sepsis with multisystem organ failure. My guess is that this is primarily urine related as the color of the urine was thick with mucus. This is certainly colitis. My guess is C. diff, al though it theoretically could be ischemic. In any case, the patient will be treated with antibiotics , IV hydration. I do not think he is an operative candidate at this time. I do not think he would s urvive an operation, but I also believe that it is not an operative indication yet. We will follow w ith you. Yonatan Hull MD cc: [id number] TT: 07/07/2016 19:56:47 Confirmation # [id number] Dictation # [id number] mn
[2016-07-08 08:12] LABS: CALCIUM 6.3 mg/dL (8.4-10.5)
[2016-07-08] MEDS: Midazolam 100 mg/100ml in NS 100 MG/100 ML SOL IV PRN (08:40)
[2016-07-08] MEDS ORDERED: Vancomycin 1gm in NS 250ml 1 GM/250 ML BAG IVPB STA (08:40)
[2016-07-08] MEDS ORDERED: Sodium Chloride 0.9% 1,000 ML IV STA (09:20)
[2016-07-08] MEDS: Meropenem 1g/NS 100mL IVPB 1 GM/100 ML PIGGYBACK IVPB SCH ×2 (09:38→21:43)
[2016-07-08] MEDS: White Petrolatum Ophth Oint (Puralube) OU SCH ×7 (09:38→23:30)
[2016-07-08] MEDS ORDERED: DAPTOmycin 500 mg Inj (Cubicin) IV SCH (10:00)
[2016-07-08 10:45] LABS: ARTERIAL BLOOD GAS HCO3 14.2 mmol/L (21-28); ARTERIAL BLOOD GAS PH 7.33 (7.35-7.45)
--- NOTE | 2016-07-08 10:58 | CON ---
DATE: 07/08/2016 REQUESTING PHYSICIAN: Dr. Powell. REASON FOR CONSULTATION: I have been asked to see this unfortunate 56-year-old male who was admitted to the hospital after being found at home unresponsive. It is unclear how long the patient was unre sponsive. He is currently in intensive care, intubated and unresponsive. Reason for consult is a CT scan of the abdomen showing nonspecific mural thickening of the colon. This was noted in the descen ding and sigmoid colon with a large amount of feces throughout the colon. He has a history of kidney stones requiring nephrostomy tube placement, which was performed several years ago. The patient loreta arently did not follow up with his urologist. Also, the patient apparently fell at home several days ago, but did not seek any medical attention. CT scan of the head performed in the Emergency Room sh owed a small subarachnoid hemorrhage. The patient again is intubated and unable to give any history. History is obtained from the chart and in speaking with the family. PAST MEDICAL HISTORY: Notable for hypertension, kidney stones, gout, possible coronary artery diseas e. PAST SURGICAL HISTORY: Notable for bilateral nephrostomy tube placement. REVIEW OF SYSTEMS: A 14-point review of systems is unobtainable. PHYSICAL EXAMINATION: GENERAL: A 56-year-old male, lying in bed, intubated, unresponsive: VITAL SIGNS: Reveal a heart rate of 136, blood pressure 112/77, afebrile. HEENT: Reveals sclerae to be white, conjunctivae pale. NECK: Supple. CHEST: Reveals scattered rhonchi. HEART: Reveals tachycardia. ABDOMEN: Soft, nontender. EXTREMITIES: Show trace pedal edema. LABORATORY DATA: Reveal white blood cell count 25.4, hemoglobin 12. Chemistries reveal total biliru bin 2.7, AST 384, ALT 133. PT 13.4, INR 1.24. Hepatitis serology is negative. IMPRESSION: A 56-year-old male found unresponsive at home with a history of fall at home, subsequent ly found to have a small subarachnoid hemorrhage, admitted to the hospital with sepsis syndrome and p ossible anoxic encephalopathy. His CT scan of the abdomen and pelvis did show mild to moderate mural thickening of the left colon. His prognosis is extremely poor. RECOMMENDATIONS: 1. Continue supportive care. 2. Continue broad spectrum IV antibiotics. Chicho Saunders MD cc: [id number] TT: 07/08/2016 10:57:23 Confirmation # [id number] Dictation # [id number] tn
--- NOTE | 2016-07-08 10:59 | RAD ---
HISTORY: re-eval COMPARISON: 07/07/2016 FINDINGS: LUNGS: No active pulmonary disease. PLEURA: No significant pleural effusion identified, no pneumothorax apparent. CARDIOVASCULAR: There is vascular congestion left greater than right. OSSEOUS STRUCTURES: No significant abnormalities. VISUALIZED UPPER ABDOMEN: Normal. OTHER FINDINGS: Endotracheal and nasogastric tube are in satisfactory position. Right IJ line in satisfactory position IMPRESSION: Increasing vascular congestion left greater than right
--- NOTE | 2016-07-08 11:14 | OP ---
PROCEDURE DATE: 07/07/2016 PROCEDURE: Hemodialysis catheter placed. INDICATION: Emergent hemodialysis. After obtaining informed consent, operational area was sterilized. Right femoral vein was identified with ultrasound. Maximum barrier precaution used. Right common femoral vein was cannulated by ster ile Seldinger technique under realtime ultrasound guidance. Guidewire removed. Hemostasis achieved. Sterile dressing applied. No complication and no significant blood loss. Devang Talbot MD cc: [id number] TT: 07/08/2016 11:13:51 mn
--- NOTE | 2016-07-08 11:15 | PN ---
DATE: 07/08/2016 The patient seen and examined at bedside. He is sedated with Versed. He is on PRVC 470/100/30/5. He is on vasopressin 0.03 units per minute, Levophed 20 mcg per minute, phenylephrine 200 mcg per minute, bicarbonate drip at 200 mL per hour. PHYSICAL EXAMINATION: VITAL SIGNS: Heart rate 137, blood pressure 102/60. HEAD AND NECK: Atraumatic. EYES: conjunctivitis. . HEART: Regular rate and rhythm, S1S2 distant. LUNGS: Decreased breath sounds bilaterally.. ABDOMEN: Distended, soft. No peritoneal signs. NEUROLOGIC: The patient is sedated. SKIN: Moist. PSYCHIATRIC: The patient is sedated. LABORATORY DATA: VBG showed pH 7.21, lactic acid 7.1. WBC 25.4, hemoglobin 12 , platelet count 96. INR 1.24. Sodium 133, potassium 3.6, chloride 101, carbon dioxide 16, BUN 69, creatinine 6.3, glucose 210. AST 384, ALT 133. Troponin 7.3. MEDICATIONS: Daptomycin, Flagyl, hydrocortisone 50 mg IV q. 6, meropenem, norepinephrine, Protonix, phenylephrine, bicarb, vancomycin p.o., vasopressin, Zyvox. Blood culture positive for gram-positive cocci in clusters. ASSESSMENT AND PLAN: This is a 56-year-old gentleman with refractory septic shock, (now on 2 vasopressors) secondary to colitis and urinary tract infection with multiorgan system failure including respiratory failure, acute kidney injury, septic encephalopathy, disseminated intravascular coagulation, transaminitis, septic cardiomyopathy. His inferior vena cava looks a little bit amaro after aggressive fluid resuscitation yesterday; however, patient is still tachycardic. His blood pressure at best borderline despite Levophed 20 mcg per minute and phenylephrine 200 mcg per minute. He has mottled legs which are also cold, likely due to high vasopressor therapy, however, will call vascular surgeon to evaluate. Cardology is on board. Control of the heart rate is a big concern as well, as even beta blockers may drop blood pressure further. His lactic acidosis is getting worse. I spoke with family about prognosis if patient will not improve clinically soon. 1. Neurology: The patient was sedated; however, will stop Versed at present time. The patient has septic encephalopathy. He was admitted unresponsive and intubated en route to [facility]. 2. Pulmonary: Will continue with ventilatory support and will try to adjust minute ventilation to help with severe metabolic acidosis as well. He is on conservative oxygen therapy; however, still required very high FIO2. ABG is pending and FIO2 will be adjusted accordingly. 3. Cardiovascular: The patient is on vasopressin, phenylephrine and norepinephrine. Phenylephrine was started out of concern for very high heart rate. The patient continued to receive bicarb and fluids. The patient has septic cardiomyopathy; however, beta blockers may potentially drop blood pressure further. We will appreciate the help of cardiology service in this regard. Yesterday I spoke to Dr. Lee. He has recommending continued fluid resuscitation. Echocardiogram was done; results are pending. 4. Gastrointestinal: The patient is n.p.o. and GI prophylaxis. 5. Nephrology: The patient has acute kidney injury on top of chronic kidney disease. The patient is on dialysis, bicarb drip. I will strongly recommend against mannitol (that will be discussed with nephrology golf tournament consultant). 6. Endocrine: We will continue to maintain blood glucose between 140-180 range according to NICE-SUGAR trial. ccm time 40 min Devang Talbot MD cc: [id number] TT: 07/08/2016 11:10:14 Confirmation # [id number] Dictation # [id number] il 07/08/2016 10:14:26 HUGO
--- NOTE | 2016-07-08 15:32 | CP.PCM.PN ---
<Jessie Ladd - Last Filed: 07/08/16 15:29> Subjective - Date & Time of Evaluation Date of Evaluation: 07/08/16 Time of Evaluation: 15:29 - Subjective Subjective: [facility] PROGRESS NOTE Pt is seen and examined at bedside. Family is at bedside. Patient is intubated on PRVC. Patient had R internal jugular line placed yesterday and had hemodialysis catheter placed today. Patient does not have pupillary, gag reflex present. Ewing catheter and NG tube in place. Objective - Vital Signs/Intake and Output Vital Signs (last 24 hours): Temp Pulse Resp BP Pulse Ox 100.5 F H 136 H 39 H 98/71 L 32 L 07/08/16 06:00 07/08/16 07:02 07/07/16 14:31 07/08/16 06:36 07/08/16 06:40 Intake and Output: 07/08/16 07/08/16 06:59 18:59 Intake Total 18758 604 Output Total 300 0 Balance 24313 604 - Medications Medications: Current Medications Artificial Tears (Puralube Opht Oint) 2 appl OU Q2H NICO Last Admin: 07/08/16 09:38 Dose: 1 applic Hydrocortisone Sodium Succinate (Solu-Cortef) 50 mg IVP Q6H NICO Last Admin: 07/08/16 15:06 Dose: 50 mg Metronidazole (Flagyl) 500 mg in 100 mls @ 100 mls/hr IVPB Q8 NICO PRN Reason: Protocol Last Admin: 07/08/16 15:04 Dose: 100 mls/hr Sodium Bicarbonate 150 meq/ (Dextrose) 1,150 mls @ 200 mls/hr IV .Q5H45M NICO Last Admin: 07/08/16 04:56 Dose: 200 mls/hr Phenylephrine HCl 40 mg/ (Sodium Chloride) 254 mls @ 38.1 mls/hr IV .Q6H40M PRN ; Protocol; 100 MCG/MIN PRN Reason: TITRATE PER MD ORDER Last Admin: 07/08/16 08:36 Dose: 200 mcg/min, 76.2 mls/hr Vasopressin 20 units/ Sodium (Chloride) 101 mls @ 9.09 mls/hr IV .Q11H7M NICO; 0.03 U/MIN PRN Reason: Protocol Last Admin: 07/08/16 00:53 Dose: 9.09 mls/hr NOREPINEPHRINE BIT/0.9 % NACL (Levophed 4 Mg/ 250 Ml Ns Premixed) 4 mg in 250 mls @ 18.75 mls/hr IV .[id number] PRN; Protocol; 5 MCG/MIN PRN Reason: TITRATE PER MD ORDER Last Admin: 07/08/16 08:37 Dose: 20 mcg/min, 75 mls/hr Midazolam 100 mg/100ml in NS (Midazolam 100 Mg/100ml In Ns) 100 mg in 100 mls @ 1 mls/hr IV .Q24H PRN; Protocol; 1 MG/HR PRN Reason: Sedation Last Admin: 07/08/16 08:40 Dose: 0.5 mg/hr, 0.5 mls/hr Meropenem 1g/NS 100mL IVPB (Meropenem 1g/Ns 100ml Ivpb) 1 gm in 100 mls @ 100 mls/hr IVPB Q12 NICO PRN Reason: Protocol Stop: 07/14/16 22:01 Last Admin: 07/08/16 09:38 Dose: 100 mls/hr Daptomycin 450 mg/ Sodium (Chloride) 100 mls @ 200 mls/hr IV [facility]DAY [facility] Stop: 07/13/16 10:16 Last Admin: 07/08/16 11:30 Dose: 200 mls/hr Pantoprazole Sodium (Protonix Inj) 40 mg IVP DAILY [facility] Last Admin: 07/08/16 09:37 Dose: 40 mg Vancomycin HCl (Vancocin 25 Mg/Ml (Oral Use)) 500 mg PO Q6H NICO PRN Reason: Protocol Last Admin: 07/08/16 11:15 Dose: 500 mg - Labs Labs: 07/08/16 06:50 07/08/16 06:50 PT 13.4 Seconds (9.9-11.8) H 07/07/16 04:45 INR 1.24 (0.93-1.08) H 07/07/16 04:45 APTT 35.9 Seconds (23.7-30.8) H 07/07/16 04:45 - Head Exam Head Exam: ATRAUMATIC - ENT Exam ENT Exam: Mucous Membranes Moist - Respiratory Exam Respiratory Exam: Clear to Ausculation Bilateral. absent: Rales, Rhonchi, Wheezes - Cardiovascular Exam Cardiovascular Exam: Tachycardia, +S1, +S2 - GI/Abdominal Exam GI & Abdominal Exam: Distended, Soft, Normal Bowel Sounds - Extremities Exam Extremities Exam: absent: Pedal Edema, Tenderness - Neurological Exam Neurological Exam: absent: Alert, Awake, CN II-XII Intact, Oriented x3 Additional comments: no pupillary reflexes noted B/L. Does not react to painful stimuli - Skin Skin Exam: Dry, Intact, Normal Color. absent: Warm Additional comments: patient's extremities are cold to touch Assessment and Plan - Assessment and Plan (Free Text) Assessment: 56 year old male with past medical history of hernias, gout, kidney stones with B/L nephrostomy tubes in place, questionable history of CAD with stents is admitted for septic shock secondary to urosepsis vs. colitis with end organ dysfunction. Patient also had acute respiratory distress and was intubated on the field. On admission to hospital CT of head showed B/L small SAH R>L and small posterior left soft tissue scalp hematoma. CT of abdomen showed colitis in Left colon through rectosigmoid. EKG showed fusion complexes with HR of 160. CXR showed B/L nephrostomy tubes, mild bibasilar atelectasis. 1. Septic shock likely 2/2 UTI vs. colitis - ID, Dr. Anderson is consulted - Sx, Dr. Hull consulted - GI, Dr. Saunders consulted - Blood and urine cultures grew staph aureu. Patient is also + for c diff - Patient currently on sodium bicarb in D5 due to severe metabolic acidosis - Patient is currently on levophed, vasopressin and phenylephrine - Hydrocortisone 50 mg IVP q6 - Abx: Vanco, meropenem, flagyl and daptomycin - Procal is 175 - hep panel and HIV is negative 2. Acute respiratory distress likely 2/2 #1 - Intubated on PRVC - NPO - NG tube in place - Versed for sedation 3. Subarachanoid hemorrhage B/L - Will monitor with repeat CT - Neurosurgery is consulted. ED physician spoke with neurosurgery, no surgical intervention at this time - Anticoagulation contraindicated 4. Elevated troponins - troponins trending up - will continue to monitor - Cardiology, Dr. Lee 5. B/L nephrostomy tube - Nephrology, Dr. Han is consulted 6. ESRD - Patient is started on dialysis Prophylaxis Protonix 40 mg IV daily SCDs Palliative care is consulted. Case discussed with attending, Dr. Randolph <Jacqueline Randolph - Last Filed: 07/11/16 17:14> Objective - Vital Signs/Intake and Output Vital Signs (last 24 hours): Temp Pulse Resp BP Pulse Ox 99 F 117 H 14 0/0 L 84 L 07/09/16 00:00 07/09/16 06:00 07/09/16 06:00 07/09/16 06:00 07/09/16 06:00 - Labs Labs: 07/08/16 06:50 07/08/16 06:50 PT 13.4 Seconds (9.9-11.8) H 07/07/16 04:45 INR 1.24 (0.93-1.08) H 07/07/16 04:45 APTT 35.9 Seconds (23.7-30.8) H 07/07/16 04:45 Attending/Attestation - Attestation I have personally seen and examined this patient.: Yes I have fully participated in the care of the patient.: Yes I have reviewed all pertinent clinical information, including history, physical exam and plan: Yes Notes (Text): I have seen and examined this patient at bedside. Briefly this is 56 year old male with history of gout, kidney stones with B/L nephrostomy tubes in place, questionable history of CAD with stents in place who was brought for evaluation of unrespoonsive and found to have septic shock most likely due to urosepsis vs Colitis, Ventilation dependent respiratory failure, Bilateral small subaracnoid hemorrhage, elevated troponins, acute on chronic renal failure and retained nephrostomy tubes. Multiple specialities including palliative care, ID, Surgery , GI, Renal, Neurosurgery, neurology and cardiology on board. He remains intubated however he does not have pupillary or gag reflex. He was also dialyzed yesterday. He is on 3 pressors and stress dose of steroids at this time. He is also on broad spectrum antibiotics including vancomycin, meropenem, flagyl and daptomycin. Neurosurgery recommended conservative management for SAH. Patients prognosis is grave. He will be closely monitored in ICU. Discussed with immigration case worker. Discussed in detail with patients family in the presence of Henny Tariq. Upon discharge patient will follow up with Dr Xavi Tam. Dr Jacqueline Randolph
--- NOTE | 2016-07-08 16:46 | PN ---
DATE: 07/08/2016 SUBJECTIVE: The patient is still on the ventilator. He is hypotensive, on 3 pressors and very poor urinary output. Dialysis was attempted, but was not initiated because of hypotension. No reported v entricular arrhythmia. The patient is on bicarbonate drip and has received IV fluid challenge. PHYSICAL EXAMINATION: VITAL SIGNS: Blood pressure 112/77, heart rate 140, temperature 100.8. HEENT: Dry mucous membranes. NECK: No JVD. CHEST: Bilateral rhonchi. HEART: S1, S2 regular. EXTREMITIES: No pedal edema. LABORATORIES: CBC: WBC 25.4, hemoglobin 12, hematocrit 33.3, platelet count 96,000. BUN and creati nine are 69 and 6.3, potassium is within normal limits at 3.6, calcium below normal at 6.3. Echocard iographic study report: Normal left ventricular size and wall thickness, moderately impaired left rosa tricular systolic function with global hypokinesis, grade I abnormal relaxation pattern. Ejection fr action was measured at 44.7%. Blood culture is positive for Staph aureus. ASSESSMENT: 1. Colitis. 2. Staph aureus septicemia. 3. Systolic heart failure. 4. Septic shock. RECOMMENDATIONS: Continue current IV pressors, vasopressin and Levophed. Continue IV daptomyc in, IV Flagyl and IV vancomycin. Optimize intravenous hydration. The case was discussed with the wv dical team. Rafa Lee MD cc: [id number] TT: 07/08/2016 16:45:31 Confirmation # [id number] Dictation # [id number] ln
--- NOTE | 2016-07-08 16:58 | PN ---
DATE: 07/08/2016 HISTORY OF PRESENT ILLNESS: A 56-year-old male with past medical history of gout, nephrolithiasis st atus post bilateral ureteral stent and CKD stage IV, admitted with septic shock and acute renal failu re, nephrology consulted for the same. The patient is status post emergent dialysis session yesterday with increasing FiO2 requirement and o n 3 vasopressors. PHYSICAL EXAMINATION: VITAL SIGNS: This morning, blood pressure 112/77, heart rate 138, O2 sat 96% on . GENERAL: Intubated, not responsive. HEENT: Constricted pupils. Nonicteric. LUNGS: Clear to auscultation bilaterally. No rales, no rhonchi, no wheezes. CARDIOVASCULAR: Tachycardic. No murmurs, no gallops, no rubs. GASTROINTESTINAL: Abdomen mildly distended. Otherwise, soft. GENITOURINARY: Ewing in place with about 200 mL of urine output over the past few hours. LABORATORY DATA: This morning, WBC 25.4, hemoglobin 12.0, hematocrit 33.3, platelets . Outpatient Physical Therapist ry panel: Sodium 133, potassium 3.6, chloride 101, bicarbonate 16, BUN 69, creatinine 6.3, glucose 2 10, calcium 6.3, albumin 1.9. ASSESSMENT: 1. Septic shock, growing gram-positive Staph aureus in blood and gram-negative rods in the urine cul ture. Currently on daptomycin every other day and meropenem 1 gram q. 12 hours as well as p.o. vanco mycin. Getting high dose of antibiotics in the setting of infection that is not yet controlled. If clinically improved, should consider redosing meropenem to 1 gram every day for acute renal failure, daptomycin dose appropriate for acute renal failure. 2. Acute renal failure, oliguric renal failure in the setting of septic shock. At this point, has l ikely progressed to acute tubular necrosis. Dialyzed yesterday for severe metabolic acidosis. Acid base status is currently acceptable with last pH being 7.33. Hypokalemia has resolved. No urgent ind ication for dialysis today. Also, on dialysis poses the harm of worsening hypotension as was seen dur ing dialysis session yesterday. We will reevaluate tomorrow for need for hemodialysis. If septic sh ock cannot be controlled and patient continues to go further into multiorgan dysfunction, then dialys is will likely serve no benefit in overall clinical picture. 3. Hypocalcemia. Corrected calcium for serum albumin is about 7.9. Would monitor ionized calcium an d replenish if needed. 4. Obstructive uropathy. The patient is status post bilateral ureteral stent placement. Unclear as to when stents were changed. Although Staphylococcus aureus is growing in the urine, it is unlikely that the urine or ureteral stents are the source for gram-positive infection. Nevertheless, agree w ith urology assessment for possible stent removal. Sandeep Han MD cc: [id number] TT: 07/08/2016 16:58:11 Confirmation # [id number] Dictation # [id number] ln
--- NOTE | 2016-07-08 20:39 | CP.PCM.CON ---
History of Present Illness - History of Present Illness History of Present Illness: Vascular surgery consult note for Dr. Caban Consulted for: BL feet ischemia 56M with PMH of gout, nephrolithiasis with ureteral stent who presented to the ED after being found unresponsive at home. Patient was admitted to the ICU with BL subarachnoid hemorrhages, septic shock from possible colitis and urosepsis, and acute renal failure, and is currently intubated, with poor hemodynamic stability on multiple pressors--phenylepherine, vassopressin, and levophed. Vascular surgery was consulted for BL feet pallor, skin mottling, and poikilothermia noted today by family. Patient's family denies any knowledge of previous PVD/PAD or thrombotic/embolic history. Patient has not had any significant neurologic function return, pupils are fixed and pinpoint, no gag reflex, GCS of 3, and very poor neurologic prognosis per neurology and ICU team. Family is strongly considering terminal extubation in the near future. Review of Systems - Review of Systems Systems not reviewed;Unavailable: Altered Mental Status, Intubated Past Patient History - Infectious Disease Hx of Infectious Diseases: None - Past Medical History & Family History Past Medical History?: Yes - Past Social History Smoking Status: Unknown If Ever Smoked - CARDIAC Hx Cardiac Disorders: No - PULMONARY Hx Respiratory Disorders: No - NEUROLOGICAL Hx Neurological Disorder: No - HEENT Hx HEENT Problems: No - RENAL Hx Kidney Stones: Yes - ENDOCRINE/METABOLIC Hx Endocrine Disorders: No - HEMATOLOGICAL/ONCOLOGICAL Hx Blood Disorders: No - INTEGUMENTARY Hx Dermatological Problems: No - MUSCULOSKELETAL/RHEUMATOLOGICAL Hx Falls: No Hx Gout: Yes - GASTROINTESTINAL Hx Gastrointestinal Disorders: No - GENITOURINARY/GYNECOLOGICAL Hx Genitourinary Disorders: No - PSYCHIATRIC Hx Psychophysiologic Disorder: No Hx Substance Use: No - SURGICAL HISTORY Other/Comment: Renal stents - removed over a year ago Meds Allergies/Adverse Reactions: Allergies Allergy/AdvReac Type Severity Reaction Status Date / Time No Known Allergies Allergy Verified 07/29/15 10:15 - Medications Medications: Current Medications Artificial Tears (Puralube Opht Oint) 2 appl OU Q2H [facility] Last Admin: 07/08/16 18:04 Dose: 1 applic Hydrocortisone Sodium Succinate (Solu-Cortef) 50 mg IVP Q6H [facility] Last Admin: 07/08/16 15:06 Dose: 50 mg Metronidazole (Flagyl) 500 mg in 100 mls @ 100 mls/hr IVPB Q8 [facility] PRN Reason: Protocol Last Admin: 07/08/16 15:04 Dose: 100 mls/hr Sodium Bicarbonate 150 meq/ (Dextrose) 1,150 mls @ 200 mls/hr IV .Q5H45M [facility] Last Admin: 07/08/16 18:54 Dose: 200 mls/hr Phenylephrine HCl 40 mg/ (Sodium Chloride) 254 mls @ 38.1 mls/hr IV .Q6H40M PRN ; Protocol; 100 MCG/MIN PRN Reason: TITRATE PER MD ORDER Last Admin: 07/08/16 16:06 Dose: 200 mcg/min, 76.2 mls/hr Vasopressin 20 units/ Sodium (Chloride) 101 mls @ 9.09 mls/hr IV .Q11H7M [facility]; 0.03 U/MIN PRN Reason: Protocol Last Admin: 07/08/16 13:10 Dose: 9.09 mls/hr NOREPINEPHRINE BIT/0.9 % NACL (Levophed 4 Mg/ 250 Ml Ns Premixed) 4 mg in 250 mls @ 18.75 mls/hr IV .[id number] PRN; Protocol; 5 MCG/MIN PRN Reason: TITRATE PER MD ORDER Last Admin: 07/08/16 18:53 Dose: 20 mcg/min, 75 mls/hr Midazolam 100 mg/100ml in NS (Midazolam 100 Mg/100ml In Ns) 100 mg in 100 mls @ 1 mls/hr IV .Q24H PRN; Protocol; 1 MG/HR PRN Reason: Sedation Last Admin: 07/08/16 08:40 Dose: 0.5 mg/hr, 0.5 mls/hr Meropenem 1g/NS 100mL IVPB (Meropenem 1g/Ns 100ml Ivpb) 1 gm in 100 mls @ 100 mls/hr IVPB Q12 [facility] PRN Reason: Protocol Stop: 07/14/16 22:01 Last Admin: 07/08/16 09:38 Dose: 100 mls/hr Daptomycin 450 mg/ Sodium (Chloride) 100 mls @ 200 mls/hr IV QOTHERDAY [facility] Stop: 07/13/16 10:16 Last Admin: 07/08/16 11:30 Dose: 200 mls/hr Norepinephrine Bitartrate 8 mg (/ Sodium Chloride) 258 mls @ 9.67 mls/hr IV .Q24H PRN; 5 MCG/MIN PRN Reason: MD ORDER Norepinephrine Bitartrate 8 mg (/ Sodium Chloride) 258 mls @ 9.67 mls/hr IV .Q24H PRN; 5 MCG/MIN PRN Reason: PER MDS ORDER Pantoprazole Sodium (Protonix Inj) 40 mg IVP DAILY [facility] Last Admin: 07/08/16 09:37 Dose: 40 mg Vancomycin HCl (Vancocin 25 Mg/Ml (Oral Use)) 500 mg PO Q6H [facility] PRN Reason: Protocol Last Admin: 07/08/16 18:08 Dose: 500 mg Physical Exam - Constitutional Appears: Toxic, In Acute Distress - Head Exam Head Exam: ATRAUMATIC, NORMAL INSPECTION - Eye Exam Eye Exam: absent: PERRL Pupil Exam: Fixed, Miosis Additional comments: severe conjunctival swelling - ENT Exam Additional comments: ETT in place - Neck Exam Neck exam: Positive for: Normal Inspection - Respiratory Exam Additional comments: intubed on bicycle mechanic ventillation with spontaneous overbreathing, no tachypnea - Cardiovascular Exam Cardiovascular Exam: Tachycardia, REGULAR RHYTHM - GI/Abdominal Exam GI & Abdominal Exam: Distended (moderately distended). absent: Guarding, Rigid , Soft - Extremities Exam Additional comments: BL feet cold to the touch, pallid with areas of mottling worst in toes, capillary refill >2seconds. DP not appreciated with doppler BL, TP auscultated well with doppler BL, popliteal artery palpable BL. Above the ankle skin is normal color, warm, and without mottling with capillary refill <2secs. No signs of ischemia in the upper extremities - Neurological Exam Neurological exam: Altered Additional comments: no gag, corneal, or pupilary refex. DTR's intact. - Psychiatric Exam Additional comments: unable to assess d/t AMS - Skin Skin Exam: Dry, Intact Additional comments: See extremity exam Results - Vital Signs Recent Vital Signs: Last Vital Signs Temp 102 F H 07/08/16 12:00 Pulse 122 H 07/08/16 19:00 Resp 30 H 07/08/16 14:31 BP 84/53 L 07/08/16 18:54 Pulse Ox 68 L 07/08/16 19:00 - Labs Result Diagrams: 07/08/16 06:50 07/08/16 06:50 Labs: Laboratory Results - last 24 hr 07/07/16 07/07/16 07/07/16 21:38 21:38 21:38 WBC 17.8 H D RBC 3.90 Hgb 11.5 L Hct 32.0 L MCV 82.1 MCH 29.5 MCHC 35.9 RDW 15.4 H Plt Count 65 L Gran % Lymph % (Auto) Delta % (Auto) Eos % (Auto) Baso % (Auto) Gran # Lymph # Delta # Eos # Baso # pCO2 pO2 84 H HCO3 ABG pH ABG Total CO2 ABG O2 Saturation ABG Base Excess VBG pH 7.10 L* VBG pCO2 48.0 VBG HCO3 14.9 L VBG Total CO2 16.4 L VBG O2 Sat (Calc) 94.7 H VBG Base Excess -14.6 L VBG Potassium 3.4 L Sodium 134 134.0 Chloride 104 108.0 H Glucose 133 H Lactate 5.7 H* FiO2 21.0 Potassium 3.4 L Carbon Dioxide 18 L Anion Gap 15 BUN 68 H Creatinine 5.9 H Est GFR ( Amer) 12 Est GFR (Non-Af Amer) 10 Random Glucose 120 H Calcium 6.6 L* Total Bilirubin 2.4 H AST 283 H ALT 101 H Alkaline Phosphatase 121 Lactate Dehydrogenase 1433 H Total Creatine Kinase 1224 H CK-MB (CK-2) 35.3 H CK-MB (CK-2) % 2.9 Troponin I 7.30 H* D Total Protein 3.8 L Albumin 1.8 L Globulin 2.0 Albumin/Globulin Ratio 0.9 L Venous Blood Potassium 3.4 L Ur Random Creatinine Ur Random Sodium 07/08/16 07/08/16 07/08/16 05:00 05:00 06:50 WBC RBC Hgb Hct MCV MCH MCHC RDW Plt Count Gran % Lymph % (Auto) Delta % (Auto) Eos % (Auto) Baso % (Auto) Gran # Lymph # Delta # Eos # Baso # pCO2 pO2 HCO3 ABG pH ABG Total CO2 ABG O2 Saturation ABG Base Excess VBG pH VBG pCO2 VBG HCO3 VBG Total CO2 VBG O2 Sat (Calc) VBG Base Excess VBG Potassium Sodium 133 Chloride 101 Glucose Lactate FiO2 Potassium 3.6 Carbon Dioxide 16 L Anion Gap 20 BUN 69 H Creatinine 6.3 H Est GFR ( Amer) 11 Est GFR (Non-Af Amer) 9 Random Glucose 210 H Calcium 6.3 L* Total Bilirubin 2.7 H AST 384 H ALT 133 H Alkaline Phosphatase 123 Lactate Dehydrogenase Total Creatine Kinase CK-MB (CK-2) CK-MB (CK-2) % Troponin I Total Protein 4.0 L Albumin 1.9 L Globulin 2.1 Albumin/Globulin Ratio 0.9 L Venous Blood Potassium Ur Random Creatinine 29 Ur Random Sodium 120 07/08/16 07/08/16 07/08/16 06:50 06:50 10:35 WBC 25.4 H* D RBC 4.12 Hgb 12.0 L Hct 33.3 L MCV 80.8 MCH 29.1 MCHC 36.0 RDW 15.4 H Plt Count 96 L Gran % 91.0 H Lymph % (Auto) 4.6 L Delta % (Auto) 2.9 Eos % (Auto) 0.0 L Baso % (Auto) 1.5 Gran # 23.08 H Lymph # 1.2 Delta # 0.7 H Eos # 0.0 Baso # 0.37 pCO2 27 L pO2 62 H 157.0 H HCO3 14.2 L ABG pH 7.33 L ABG Total CO2 15.0 L ABG O2 Saturation 96.9 ABG Base Excess -10.4 L VBG pH 7.21 L VBG pCO2 36.0 L VBG HCO3 14.4 L VBG Total CO2 15.5 L VBG O2 Sat (Calc) 91.4 H VBG Base Excess -12.6 L VBG Potassium 3.5 L Sodium 133.0 Chloride 103.0 109.0 H Glucose 223 H 220 H Lactate 7.1 H* 6.0 H* FiO2 21.0 Potassium Carbon Dioxide Anion Gap BUN Creatinine Est GFR ( Amer) Est GFR (Non-Af Amer) Random Glucose Calcium Total Bilirubin AST ALT Alkaline Phosphatase Lactate Dehydrogenase Total Creatine Kinase CK-MB (CK-2) CK-MB (CK-2) % Troponin I Total Protein Albumin Globulin Albumin/Globulin Ratio Venous Blood Potassium 3.5 L Ur Random Creatinine Ur Random Sodium Assessment & Plan - Assessment and Plan (Free Text) Assessment: 56M with multiple organ failure and VDRF d/t septic shock with BL feet ischemia likely due to pressor support and hypotension Assessment ischemic changes in feet BL extending to the ankle Hypotensive 84/53 Pressor support with phenylepherine, vasopressin, and levophed Ischemic changes likely due to high dose pressors and hypotension Plan: No plans for surgical intervention as presentation is not likely vascular in etiology and patient is hemodynamically unstable on ventillation and extreme supportive measures with poor neurologic prognosis. This was discussed with the family at bedside and discussed at length with Dr. Caban who agreed with assessment and plan. Thank you for this consult Sharlene Brannon, PGY1
--- NOTE | 2016-07-08 21:57 | CP.PCM.PN ---
Subjective - Date & Time of Evaluation Date of Evaluation: 07/08/16 Time of Evaluation: 08:10 - Subjective Subjective: Patient continues to be on the ventilator, in acute distress, no fevers. Objective - Vital Signs/Intake and Output Vital Signs (last 24 hours): Temp Pulse Resp BP Pulse Ox 99.3 F 121 H 30 H 94/62 L 69 L 07/08/16 20:00 07/08/16 21:00 07/08/16 21:00 07/08/16 21:00 07/08/16 21:00 Intake and Output: 07/08/16 07/09/16 18:59 06:59 Intake Total 17453 Output Total 400 Balance 75419 - Medications Medications: Current Medications Artificial Tears (Puralube Opht Oint) 2 appl OU Q2H [facility] Last Admin: 07/08/16 18:04 Dose: 1 applic Hydrocortisone Sodium Succinate (Solu-Cortef) 50 mg IVP Q6H [facility] Last Admin: 07/08/16 15:06 Dose: 50 mg Metronidazole (Flagyl) 500 mg in 100 mls @ 100 mls/hr IVPB Q8 [facility] PRN Reason: Protocol Last Admin: 07/08/16 15:04 Dose: 100 mls/hr Sodium Bicarbonate 150 meq/ (Dextrose) 1,150 mls @ 200 mls/hr IV .Q5H45M [facility] Last Admin: 07/08/16 18:54 Dose: 200 mls/hr Phenylephrine HCl 40 mg/ (Sodium Chloride) 254 mls @ 38.1 mls/hr IV .Q6H40M PRN ; Protocol; 100 MCG/MIN PRN Reason: TITRATE PER MD ORDER Last Admin: 07/08/16 16:06 Dose: 200 mcg/min, 76.2 mls/hr Vasopressin 20 units/ Sodium (Chloride) 101 mls @ 9.09 mls/hr IV .Q11H7M [facility]; 0.03 U/MIN PRN Reason: Protocol Last Admin: 07/08/16 13:10 Dose: 9.09 mls/hr NOREPINEPHRINE BIT/0.9 % NACL (Levophed 4 Mg/ 250 Ml Ns Premixed) 4 mg in 250 mls @ 18.75 mls/hr IV .[id number] PRN; Protocol; 5 MCG/MIN PRN Reason: TITRATE PER MD ORDER Stop: 07/08/16 22:13 Last Admin: 07/08/16 18:53 Dose: 20 mcg/min, 75 mls/hr Midazolam 100 mg/100ml in NS (Midazolam 100 Mg/100ml In Ns) 100 mg in 100 mls @ 1 mls/hr IV .Q24H PRN; Protocol; 1 MG/HR PRN Reason: Sedation Last Admin: 07/08/16 08:40 Dose: 0.5 mg/hr, 0.5 mls/hr Meropenem 1g/NS 100mL IVPB (Meropenem 1g/Ns 100ml Ivpb) 1 gm in 100 mls @ 100 mls/hr IVPB Q12 [facility] PRN Reason: Protocol Stop: 07/14/16 22:01 Last Admin: 07/08/16 09:38 Dose: 100 mls/hr Daptomycin 450 mg/ Sodium (Chloride) 100 mls @ 200 mls/hr IV QOTHERDAY [facility] Stop: 07/13/16 10:16 Last Admin: 07/08/16 11:30 Dose: 200 mls/hr Norepinephrine Bitartrate 8 mg (/ Sodium Chloride) 258 mls @ 9.67 mls/hr IV .Q24H PRN; 5 MCG/MIN PRN Reason: PER MDS ORDER Pantoprazole Sodium (Protonix Inj) 40 mg IVP DAILY [facility] Last Admin: 07/08/16 09:37 Dose: 40 mg Vancomycin HCl (Vancocin 25 Mg/Ml (Oral Use)) 500 mg PO Q6H [facility] PRN Reason: Protocol Last Admin: 07/08/16 18:08 Dose: 500 mg - Labs Labs: 07/08/16 06:50 07/08/16 06:50 PT 13.4 Seconds (9.9-11.8) H 07/07/16 04:45 INR 1.24 (0.93-1.08) H 07/07/16 04:45 APTT 35.9 Seconds (23.7-30.8) H 07/07/16 04:45 - Constitutional Appears: In Acute Distress, Other (Intubated) - ENT Exam Additional comments: ET tube in place - Neck Exam Neck Exam: absent: Meningismus - Respiratory Exam Respiratory Exam: Decreased Breath Sounds - Cardiovascular Exam Cardiovascular Exam: +S1, +S2 - GI/Abdominal Exam GI & Abdominal Exam: Soft. absent: Tenderness Assessment and Plan - Assessment and Plan (Free Text) Plan: Assessment Septic shock with multiorgan dysfunction syndrome (acute encephalopathy, acute on chronic renal failure, ventilator-dependent respiratory failure) probably due to left sided C. diff. colitis, UTI with gram negative bacilli and Staph aureus bacteremia (source to be determined) small bilateral subarachnoid hemorrhage HTN gout history of nephrolithiasis S/P bilateral nephrostomy tube placement questionable history of CAD Plan we have given a dose of IV vanco, a dose of IV gentamicin, and will continue Merrem and Daptomycin pending sensitivities of the Staph aureus in the blood and identification adn sensitivities of the gram negative bacilli in the urine; reviewed CT A/P which showed left sided colitis continue IV Flagyl and PO Vancomycin for C. diff. (day 2) Prognosis is grave
[2016-07-08] MEDS ORDERED: Phenylephrine 80 MG in Sodium Chloride 0.9% 250 ML IV PRN (22:21)
--- NOTE | 2016-07-08 23:15 | CP.PCM.PCO ---
Physician Communication Note - Physician Communication Note Physician Communication Note: Per daughter (i.e-POA) request, pt's status changed to DNR this evening
[2016-07-08 23:35] VITALS: BP 0/0
[2016-07-09] MEDS ORDERED: Morphine 4 mg/ml ISec IVP STA ×3 (00:40→00:58)
--- NOTE | 2016-07-09 00:49 | CP.PCM.PCO ---
Physician Communication Note - Physician Communication Note Physician Communication Note: Pt's children (i.e-POA's) requesting terminal extubation; Document signed
[2016-07-09] MEDS ORDERED: MORPHINE SC SCH (01:00)
[2016-07-09] MEDS ORDERED: SODIUM CHLORIDE 0.9% SC SCH (01:00)
[2016-07-09] MEDS ORDERED: SODIUM CHLORIDE 0.9% IV SCH (01:02)
[2016-07-09] MEDS ORDERED: MORPHINE IV SCH (01:02)
[2016-07-09] MEDS ORDERED: Morphine 100 MG in Sodium Chloride 0.9% 100 ML IV SCH (01:08)
[2016-07-09] MEDS: White Petrolatum Ophth Oint (Puralube) OU SCH ×3 (01:30→05:44)
[2016-07-09] MEDS: Sodium Bicarbonate 8.4% 150 MEQ in Dextrose 5% In Water 1,000 ML IV SCH (01:30)
[2016-07-09 02:13] VITALS: TEMP 99
[2016-07-09] MEDS: Vancomycin 25 MG/ML PO SCH (04:59)
[2016-07-09] MEDS: metroNIDAZOLE IV 500 mg/100 ml 500 MG/100 ML BAG IVPB SCH (05:07)
[2016-07-09 06:07] VITALS: PULSE 117; RESP 14; O2SAT 84
--- NOTE | 2016-07-09 07:58 | CP.PCM.PRO ---
Pronouncement of Note - Clinical Findings Physical Exam: No Response Verbal/Painful Stimuli, Absent Peripheral Pulses{ Carotid & Femoral}, Absent Heart & Breath Sounds, No Pupillary Light Reflex, No Corneal Reflex, Pupils Fixed & Dilated, Absence of Vital Signs - Pronouncement Time Time of Pronouncement of : 07:56 - Notifications Pronouncement Notifications: Family Notified, Atending Notified Materials Scientist Notified: No - Autopsy Autopsy Requested: No [place] [id number]
--- NOTE | 2016-07-09 08:07 | CP.PCM.PN ---
Subjective - Date & Time of Evaluation Date of Evaluation: 07/08/16 Time of Evaluation: 14:00 - Subjective Subjective: Intubated,vasopressor support . No gag or corneal reflexes Objective - Vital Signs/Intake and Output Vital Signs (last 24 hours): Temp Pulse Resp BP Pulse Ox 99 F 117 H 14 0/0 L 84 L 07/09/16 00:00 07/09/16 06:00 07/09/16 06:00 07/09/16 06:00 07/09/16 06:00 Intake and Output: 07/09/16 07/09/16 06:59 18:59 Intake Total 276 Balance 276 - Medications Medications: Current Medications Artificial Tears (Puralube Opht Oint) 2 appl OU Q2H [facility] Last Admin: 07/09/16 05:44 Dose: 1 applic Hydrocortisone Sodium Succinate (Solu-Cortef) 50 mg IVP Q6H [facility] Last Admin: 07/09/16 04:54 Dose: 50 mg Metronidazole (Flagyl) 500 mg in 100 mls @ 100 mls/hr IVPB Q8 [facility] PRN Reason: Protocol Last Admin: 07/09/16 05:07 Dose: 100 mls/hr Sodium Bicarbonate 150 meq/ (Dextrose) 1,150 mls @ 200 mls/hr IV .Q5H45M [facility] Last Admin: 07/09/16 01:30 Dose: 200 mls/hr Vasopressin 20 units/ Sodium (Chloride) 101 mls @ 9.09 mls/hr IV .Q11H7M [facility]; 0.03 U/MIN PRN Reason: Protocol Last Admin: 07/08/16 13:10 Dose: 9.09 mls/hr Midazolam 100 mg/100ml in NS (Midazolam 100 Mg/100ml In Ns) 100 mg in 100 mls @ 1 mls/hr IV .Q24H PRN; Protocol; 1 MG/HR PRN Reason: Sedation Last Admin: 07/08/16 08:40 Dose: 0.5 mg/hr, 0.5 mls/hr Meropenem 1g/NS 100mL IVPB (Meropenem 1g/Ns 100ml Ivpb) 1 gm in 100 mls @ 100 mls/hr IVPB Q12 [facility] PRN Reason: Protocol Stop: 07/14/16 22:01 Last Admin: 07/08/16 21:43 Dose: 100 mls/hr Daptomycin 450 mg/ Sodium (Chloride) 100 mls @ 200 mls/hr IV QOTHERDAY [facility] Stop: 07/13/16 10:16 Last Admin: 07/08/16 11:30 Dose: 200 mls/hr Norepinephrine Bitartrate 8 mg (/ Sodium Chloride) 258 mls @ 9.67 mls/hr IV .Q24H PRN; Protocol; 5 MCG/MIN PRN Reason: PER MDS ORDER Last Titration: 07/09/16 01:05 Dose: 0 mcg/min, 0 mls/hr Phenylephrine HCl 80 mg/ (Sodium Chloride) 258 mls @ 19.35 mls/hr IV .[id number] PRN; Protocol; 100 MCG/MIN PRN Reason: TITRATE PER MD ORDER Last Titration: 07/09/16 01:05 Dose: 0 mcg/min, 0 mls/hr Morphine Sulfate 100 mg/ (Sodium Chloride) 100 mls @ 4 mls/hr IV .Q24H [facility] Last Admin: 07/09/16 01:50 Dose: 4 mls/hr Pantoprazole Sodium (Protonix Inj) 40 mg IVP DAILY [facility] Last Admin: 07/08/16 09:37 Dose: 40 mg Vancomycin HCl (Vancocin 25 Mg/Ml (Oral Use)) 500 mg PO Q6H [facility] PRN Reason: Protocol Last Admin: 07/09/16 04:59 Dose: 500 mg - Labs Labs: 07/08/16 06:50 07/08/16 06:50 PT 13.4 Seconds (9.9-11.8) H 07/07/16 04:45 INR 1.24 (0.93-1.08) H 07/07/16 04:45 APTT 35.9 Seconds (23.7-30.8) H 07/07/16 04:45 - Constitutional Appears: Chronically Ill - Eye Exam Pupil Exam: Fixed - ENT Exam ENT Exam: Mucous Membranes Moist - Respiratory Exam Respiratory Exam: Decreased Breath Sounds, NORMAL BREATHING PATTERN - Cardiovascular Exam Cardiovascular Exam: Tachycardia, +S1, +S2 - GI/Abdominal Exam GI & Abdominal Exam: Soft, Diminished Bowel Sounds - Extremities Exam Extremities Exam: Normal Capillary Refill, Pedal Edema - Neurological Exam Neurological Exam: Altered - Skin Skin Exam: Dry, Pallor Assessment and Plan - Assessment and Plan (Free Text) Assessment: 56-year-old male admitted with sepsis, s/p respiratory failure. Intubated , vasopressor support. No gag or corneal reflexes. . Dr. Shen Randolph and I met with patients family. Family aware that patients prognosis is very poor. Patients mother verbalized that patient is likely to . I explained that the patient has a significant infection and even with aggressive medical treatment he is likely to succumb to his illness. I also explained that patient has profound brain injury as exhibited by lack of gag and corneal reflexes. Family made aware that patient will never return to baseline status and if survive will need permanent tracheostomy, ventilator, feeding tube, LTAC placement. Patients son asking for further testing to determine if he is brain . I explained that in the instance of brain the patient will be terminally extubated. Resuscitation status also discussed. Burdens of resuscitation (CPR) explained in detail. Family divided on this issue and want to discuss further. Patients children having a very hard time accepting the gravity of his condition. Family also expressed that patent has a sister coming from [place] tomorrow. Psychosocial support given Time spent in goals of care discussion, advance care planning 45 Plan: Will assist family with establishing goals of care
--- NOTE | 2016-07-09 11:15 | RAD ---
HISTORY: re-eval COMPARISON: 07/08/2016 FINDINGS: LUNGS: Increasing bilateral infiltrates PLEURA: Small pleural effusions CARDIOVASCULAR: Normal. OSSEOUS STRUCTURES: No significant abnormalities. VISUALIZED UPPER ABDOMEN: Normal. OTHER FINDINGS: None. IMPRESSION: Increasing bilateral infiltrates. Small pleural effusions.
--- NOTE | 2016-07-11 17:20 | CP.PCM.DIS ---
Provider - Provider Date of Admission: 07/07/16 09:38 Attending physician: Jacqueline Randolph MD Primary care physician: Dr Celena Tam [facility] Time Spent in preparation of Discharge (in minutes): 50 Hospital Course - Lab Results Lab Results: Micro Results 07/07/16 18:00 Stool C. difficile Antigen & Toxin A,B (M - Final Most Recent Lab Values WBC 25.4 10^3/ul (4.5-11.0) H* D 07/08/16 06:50 RBC 4.12 10^6/uL (3.5-6.1) 07/08/16 06:50 Hgb 12.0 gm/dL (14.0-18.0) L 07/08/16 06:50 Hct 33.3 % (42.0-52.0) L 07/08/16 06:50 MCV 80.8 fL (80.0-105.0) 07/08/16 06:50 MCH 29.1 pg (25.0-35.0) 07/08/16 06:50 MCHC 36.0 g/dl (31.0-37.0) 07/08/16 06:50 RDW 15.4 % (11.5-14.5) H 07/08/16 06:50 Plt Count 96 10^3/uL (120.0-450.0) L 07/08/16 06:50 Gran % 91.0 % (50.0-68.0) H 07/08/16 06:50 Lymph % (Auto) 4.6 % (22.0-35.0) L 07/08/16 06:50 [place] % (Auto) 2.9 % (1.0-6.0) 07/08/16 06:50 Eos % (Auto) 0.0 % (1.5-5.0) L 07/08/16 06:50 Baso % (Auto) 1.5 % (0.0-3.0) 07/08/16 06:50 Gran # 23.08 (1.4-6.5) H 07/08/16 06:50 Lymph # 1.2 (1.2-3.4) 07/08/16 06:50 [place]win # 0.7 (0.1-0.6) H 07/08/16 06:50 Eos # 0.0 (0.0-0.7) 07/08/16 06:50 Baso # 0.37 K/mm3 (0.0-2.0) 07/08/16 06:50 Neutrophils % (Manual) 73 % (50.0-70.0) H 07/07/16 16:27 Band Neutrophils % 12 % (0-2) H* 07/07/16 16:27 Lymphocytes % (Manual) 8 % (22.0-35.0) L 07/07/16 16:27 Monocytes % (Manual) 6 % (1.0-6.0) 07/07/16 16:27 Eosinophils % (Manual) 1 % (0.0-3.0) 07/07/16 16:27 Platelet Evaluation Normal (NORMAL) 07/07/16 16:27 Poikilocytosis (manual Slight 07/07/16 04:45 Anisocytosis (manual) 1+ 07/07/16 04:45 Rouleaux 1+ 07/07/16 16:27 PT 13.4 Seconds (9.9-11.8) H 07/07/16 04:45 INR 1.24 (0.93-1.08) H 07/07/16 04:45 APTT 35.9 Seconds (23.7-30.8) H 07/07/16 04:45 pCO2 27 mm/Hg (35-45) L 07/08/16 10:35 pO2 157.0 mm/Hg (80-100) H 07/08/16 10:35 HCO3 14.2 mmol/L (21-28) L 07/08/16 10:35 ABG pH 7.33 (7.35-7.45) L 07/08/16 10:35 ABG Total CO2 15.0 mmol.L (22-28) L 07/08/16 10:35 ABG O2 Saturation 96.9 % (95-98) 07/08/16 10:35 ABG O2 Content 14.6 ML/dl (15-23) L 07/07/16 16:30 ABG Base Excess -10.4 mmol/L (-2.0-3.0) L 07/08/16 10:35 ABG Hemoglobin 10.6 g/dL (11.7-17.4) L 07/07/16 16:30 ABG Carboxyhemoglobin 0 % (0.5-1.5) L 07/07/16 16:30 POC ABG HHb (Measured) 3.4 % (0-5) 07/07/16 16:30 ABG Methemoglobin 0.8 % (0.0-3.0) 07/07/16 16:30 ABG O2 Capacity 15.1 mL/dl (16-24) L 07/07/16 16:30 ABG Potassium 2.9 mmol/L (3.6-5.2) L 07/07/16 06:00 VBG pH 7.21 (7.32-7.43) L 07/08/16 06:50 VBG pCO2 36.0 (40-60) L 07/08/16 06:50 VBG HCO3 14.4 mmol/l (21-28) L 07/08/16 06:50 VBG Total CO2 15.5 mmol.L (22-28) L 07/08/16 06:50 VBG O2 Sat (Calc) 91.4 % (40-65) H 07/08/16 06:50 VBG Base Excess -12.6 mmol/L (0.0-2.0) L 07/08/16 06:50 VBG Potassium 3.5 mmol/L (3.6-5.2) L 07/08/16 06:50 Hgb O2 Saturation 95.8 % (95.0-98.0) 07/07/16 16:30 Sodium 133.0 mmol/L (132-148) 07/08/16 06:50 Chloride 109.0 mmol/L (98-107) H 07/08/16 10:35 Glucose 220 mg/dl (75-110) H 07/08/16 10:35 Lactate 6.0 mmol/L (0.7-2.1) H* 07/08/16 10:35 FiO2 21.0 % 07/08/16 06:50 Sodium 133 mmol/L (132-148) 07/08/16 06:50 Potassium 3.6 mmol/L (3.6-5.0) 07/08/16 06:50 Chloride 101 mmol/L (98-107) 07/08/16 06:50 Carbon Dioxide 16 mmol/L (21-33) L 07/08/16 06:50 Anion Gap 20 (10-20) 07/08/16 06:50 BUN 69 mg/dL (7-21) H 07/08/16 06:50 Creatinine 6.3 mg/dL (0.5-1.4) H 07/08/16 06:50 Est GFR ( Amer) 11 07/08/16 06:50 Est GFR (Non-Af Amer) 9 07/08/16 06:50 Random Glucose 210 mg/dL (70-110) H 07/08/16 06:50 Hemoglobin A1c 6.1 % (4.2-6.5) 07/07/16 09:00 Calcium 6.3 mg/dL (8.4-10.5) L* 07/08/16 06:50 Phosphorus 6.9 mg/dL (2.5-4.5) H 07/07/16 04:45 Magnesium 1.6 mg/dL (1.7-2.2) L 07/07/16 04:45 Total Bilirubin 2.7 mg/dL (0.2-1.3) H 07/08/16 06:50 AST 384 U/L (15-59) H 07/08/16 06:50 ALT 133 U/L (7-56) H 07/08/16 06:50 Alkaline Phosphatase 123 U/L (38-133) 07/08/16 06:50 Ammonia 20 umol/L (9-33) 07/07/16 04:45 Lactate Dehydrogenase 1433 U/L (333-699) H 07/07/16 21:38 Total Creatine Kinase 1224 U/L (35-230) H 07/07/16 21:38 CK-MB (CK-2) 35.3 ng/mL (0.0-3.6) H 07/07/16 21:38 CK-MB (CK-2) % 2.9 % (2.5-3.0) 07/07/16 21:38 Troponin I 7.30 ng/mL H* D 07/07/16 21:38 Total Protein 4.0 g/dL (5.8-8.3) L 07/08/16 06:50 Albumin 1.9 g/dL (3.0-4.8) L 07/08/16 06:50 Globulin 2.1 gm/dL 07/08/16 06:50 Albumin/Globulin Ratio 0.9 (1.1-1.8) L 07/08/16 06:50 Procalcitonin 175.65 NG/ML (0.19-0.49) H 07/07/16 09:00 TSH 3rd Generation 1.49 mIU/mL (0.46-4.68) 07/07/16 09:00 Arterial Blood Potassium 2.9 mmol/L (3.6-5.2) L 07/07/16 06:00 Venous Blood Potassium 3.5 mmol/L (3.6-5.2) L 07/08/16 06:50 Urine Color Yellow (YELLOW) 07/07/16 05:00 Urine Appearance Cloudy (CLEAR) 07/07/16 05:00 Urine pH 6.0 (4.7-8.0) 07/07/16 05:00 Ur Specific [place] 1.015 (1.005-1.035) 07/07/16 05:00 Urine Protein 100 mg/dL (<30 mg/dL) H 07/07/16 05:00 Urine Glucose (UA) Negative mg/dL (NEGATIVE) 07/07/16 05:00 Urine Ketones Negative mg/dL (NEGATIVE) 07/07/16 05:00 Urine Blood Large (NEGATIVE) H 07/07/16 05:00 Urine Nitrate Negative (NEGATIVE) 07/07/16 05:00 Urine Bilirubin Small (NEGATIVE) H 07/07/16 05:00 Urine Urobilinogen 1.0 E.U./dL (<1 E.U./dL) H 07/07/16 05:00 Ur Leukocyte Esterase Moderate John/uL (NEGATIVE) H 07/07/16 05:00 Urine RBC 2 - 5 /hpf (0-2) 07/07/16 05:00 Urine WBC Tntc /hpf (0-6) 07/07/16 05:00 Ur Epithelial Cells 0 - 2 /hpf (0-5) 07/07/16 05:00 Urine Bacteria Many (NEG) 07/07/16 05:00 Ur Random Creatinine 29 mg/dL 07/08/16 05:00 Ur Random Sodium 120 meq/L 07/08/16 05:00 Salicylates < 1 mg/dL (2.0-20.0) L 07/07/16 04:45 Urine Opiates Screen Negative (NEGATIVE) 07/07/16 05:00 Urine Methadone Screen Negative (NEGATIVE) 07/07/16 05:00 Acetaminophen < 10.0 ug/ml (10.0-20.0) L 07/07/16 04:45 Ur Barbiturates Screen Negative (NEGATIVE) 07/07/16 05:00 Ur Phencyclidine Scrn Negative (NEGATIVE) 07/07/16 05:00 Ur Amphetamines Screen Negative (NEGATIVE) 07/07/16 05:00 U Benzodiazepines Scrn Negative (NEGATIVE) 07/07/16 05:00 U Oth Cocaine Metabols Negative (NEGATIVE) 07/07/16 05:00 U Cannabinoids Screen Negative (NEGATIVE) 07/07/16 05:00 Alcohol, Quantitative < 10 mg/dL (0-10) 07/07/16 04:45 Hepatitis A IgM Ab Negative (NEGATIVE) 07/07/16 09:00 Hep Bs Antigen Negative (NEGATIVE) 07/07/16 09:00 Hep B Core IgM Ab Negative (NEGATIVE) 07/07/16 09:00 Hepatitis C Antibody Negative (NEGATIVE) 07/07/16 09:00 HIV 1&2 Ag/Ab, 4th Gen Nonreactive (Nonreactive) 07/07/16 09:00 - Hospital Course Hospital Course: Briefly this is 56 year old male with history of gout, kidney stones with B/L nephrostomy tubes in place, questionable history of CAD with stents in place who was brought for evaluation of unresponsive and found to have septic shock most likely due to urosepsis vs Colitis, Ventilation dependent respiratory failure, Bilateral small subaracnoid hemorrhage, elevated troponins, acute on chronic renal failure and retained nephrostomy tubes. Multiple specialities including palliative care, vascular ID, Surgery, GI, Renal, Neurosurgery, neurology and cardiology were treating this patient. His condition continued to get worse and he was made DNR and had terminal extubation as per patients POA ( Daughter). Patient early this morning. His certificate was signed by me. Dr Jcaqueline Randolph Discharge Plan - Follow Up Plan Condition: Disposition: WITH WITHOUT AUTOPSY
== END 2016-07-09 07:56 | DRG 584 ==
LOC: ED 04:35 → ERH 09:38 → CCU 10:50
PROVIDERS: ADMIT Hospitalist; ATTEND Hospitalist
PROC: 5A1945Z Respiratory Ventilation, 24-96 Consecutive Hours (ICD-10-PCS; principal; 2016-07-07)
PROC: 05HM33Z Insertion of Infusion Device into Right Internal Jugular Vein, Percutaneous Approach (ICD-10-PCS; 2016-07-07)
PROC: B543ZZA Ultrasonography of Right Jugular Veins, Guidance (ICD-10-PCS; 2016-07-07)
PROC: 3E043XZ Introduction of Vasopressor into Central Vein, Percutaneous Approach (ICD-10-PCS; 2016-07-07)
PROC: 06HM33Z Insertion of Infusion Device into Right Femoral Vein, Percutaneous Approach (ICD-10-PCS; 2016-07-07)
PROC: B54BZZA Ultrasonography of Right Lower Extremity Veins, Guidance (ICD-10-PCS; 2016-07-07)
PROC: 0T9B70Z Drainage of Bladder with Drainage Device, Via Natural or Artificial Opening (ICD-10-PCS; 2016-07-08)
DX: A41.01 Sepsis due to Methicillin susceptible Staphylococcus aureus (principal); R65.21 Severe sepsis with septic shock; J96.01 Acute respiratory failure with hypoxia; D65 Disseminated intravascular coagulation [defibrination syndrome]; N17.0 Acute kidney failure with tubular necrosis; G93.41 Metabolic encephalopathy; S06.6X9A Traumatic subarachnoid hemorrhage with loss of consciousness of unspecified duration, initial encounter; Z99.11 Dependence on respirator [ventilator] status; I50.20 Unspecified systolic (congestive) heart failure; I13.0 Hypertensive heart and chronic kidney disease with heart failure and stage 1 through stage 4 chronic kidney disease, or unspecified chronic kidney disease; N18.4 Chronic kidney disease, stage 4 (severe); I42.8 Other cardiomyopathies; E87.2 Acidosis; N12 Tubulo-interstitial nephritis, not specified as acute or chronic; E87.6 Hypokalemia; A04.7 Enterocolitis due to Clostridium difficile; K51.518 Left sided colitis with other complication; M10.9 Gout, unspecified; Z66 Do not resuscitate; I25.10 Atherosclerotic heart disease of native coronary artery without angina pectoris; N20.0 Calculus of kidney; B96.20 Unspecified Escherichia coli [E. coli] as the cause of diseases classified elsewhere; I48.91 Unspecified atrial fibrillation; E83.51 Hypocalcemia; N13.9 Obstructive and reflux uropathy, unspecified; R40.2433 Glasgow coma scale score 3-8, at hospital admission; W19.XXXA Unspecified fall, initial encounter; Z87.891 Personal history of nicotine dependence; Z95.5 Presence of coronary angioplasty implant and graft; Y92.018 Other place in single-family (private) house as the place of occurrence of the external cause